=== PATIENT | female | born 1960 | race Caucasian/White ===

== ENCOUNTER 2018-05-26 08:13 | Outpatient (REF) | payer MEDICARE, SELFPAY ==
[2018-05-26 13:26] LABS: ALT 41 U/L (12-78); AST 25 U/L (15-37); Albumin 3.8 g/dL (3.4-5.0); Alkaline Phosphatase 108 U/L (46-116); Anion Gap 14.5 mmol/L (3-11); BUN 17 mg/dL (7-18); Bilirubin, Total 0.5 mg/dL (0.2-1.0); CO2 22.5 mmol/L (21.0-32.0); CREATININE 1.21 mg/dL (0.55-1.02); Calcium 9.6 mg/dL (8.5-10.1); Chloride 104 mmol/L (98-107); Cholesterol 295 mg/dL (50-200); Estimated GFR 45.86 (mL/min/1.73m2); Glucose 125 mg/dL (70-100); HDL Cholesterol 50 mg/dL (40-60); LDL CHOLESTEROL 209 mg/dL (<100); Potassium 3.9 mmol/L (3.5-5.1); Sodium 141 mmol/L (136-145); Total Protein 7.2 g/dL (6.4-8.2); Triglyceride 181 mg/dL (30-150)
== END 2018-05-26 08:33 ==
LOC: NCHCN 08:13
PROVIDERS: PCP Nurse Practitioner; Visit Provider Nurse Practitioner
DX: E78.5 Hyperlipidemia, unspecified (principal); I10 Essential (primary) hypertension; E66.9 Obesity, unspecified
CPT/HCPCS: 80053; 80061; 83721

== ENCOUNTER 2018-07-06 10:43 | Outpatient (REF) | payer MEDICARE, SELFPAY ==
[2018-07-06 13:02] LABS: HCT 46.1 % (36.0-46.0); HGB 15.7 g/dL (12.0-15.5); Mean Corp. HGB Concentration 34.1 g/dL (32.0-36.0); Mean Corpuscular Hemoglobin 30.4 pg (27.0-33.0); Mean Corpuscular Volume 89.2 fL (80-95); Mean Platelet Volume 11.2 fL (8.0-11.0); Platelet Count 300 x1000/uL (130-400); RBC 5.17 m/cumm (4.00-5.20); RBC Distribution Width 12.5 % (11.7-14.6); White Blood Cell Count 7.01 k/cumm (4.4-10.8)
[2018-07-06 13:35] LABS: TSH (W/Ref FT4) 0.78 uIU/mL (0.358-3.74)
[2018-07-08 06:37] LABS: Vitamin D 25 Total 21.5 ng/ml (30-100)
== END 2018-07-06 11:03 ==
LOC: NCHCN 10:43
PROVIDERS: PCP Nurse Practitioner; Visit Provider Nurse Practitioner
DX: R53.83 Other fatigue (principal); E66.8 Other obesity; R22.1 Localized swelling, mass and lump, neck
CPT/HCPCS: 82306; 85027; 84443

== ENCOUNTER 2018-07-13 01:41 | Outpatient (CLI) | payer MEDICARE, SELFPAY ==
--- NOTE | 2018-07-13 13:08 | DI.US_ITS ---
SYMPTOMS/DIAGNOSIS: LOCALIZED WELL-CIRCUMSCRIBED SWELLING, RIGHT SIDE OF NECK, MILD TENDERNESS, NO H/O THYROID DISEASE THYROID ULTRASOUND: Thyroid ultrasound was performed according to the usual protocol. Right thyroid lobe measures 48 x 32 x 14 mm and left thyroid lobe measures 45 x 16 x 12 mm. No previous examination available for comparison. There are numerous small thyroid nodules bilaterally of predominantly less than 6 mm in diameter. There is a 39 x 26 x 30 mm in diameter mixed echogenicity mass of the inferior pole of the right thyroid lobe. This appears to be avascular but contains a solid component. CONCLUSION: Multiple bilateral thyroid nodules with a dominant 4 cm right thyroid mass, which is indeterminate for malignancy. Please see above discussion. Biopsy recommended.
== END 2018-07-13 02:01 ==
PROVIDERS: PCP Nurse Practitioner; Visit Provider Nurse Practitioner
DX: R22.1 Localized swelling, mass and lump, neck (principal); E04.2 Nontoxic multinodular goiter; E07.89 Other specified disorders of thyroid
CPT/HCPCS: 76536

== ENCOUNTER 2018-08-18 10:58 | Outpatient (CLI) | payer MEDICARE, SELFPAY ==
--- NOTE | 2018-08-18 10:03 | DI.RAD_ITS ---
SYMPTOMS/DIAGNOSIS: EVALUATE LEFT KNEE PAIN LEFT KNEE: Four views were obtained. There is marked narrowing of the medial tibiofemoral cartilaginous joint space. There is mild narrowing of the lateral patellofemoral cartilaginous joint space. Prominent marginal osteophytes are noted at the medial tibiofemoral joint. Mild degenerative spurring note elsewhere as well. CONCLUSION: DJD, predominantly involving medial tibiofemoral joint.
== END 2018-08-18 11:18 ==
PROVIDERS: PCP Nurse Practitioner; Referring Provider Nurse Practitioner; Visit Provider Student in an Organized Health Care Education/Training Program
DX: M25.562 Pain in left knee; M17.12 Unilateral primary osteoarthritis, left knee; I10 Essential (primary) hypertension
CPT/HCPCS: 20610; 99203; 99213; 73564; J1040

== ENCOUNTER → 2018-10-18 09:08 | Outpatient (BNVA) | payer MEDICARE, SELFPAY | PROVIDERS: PCP Nurse Practitioner; Referring Provider Nurse Practitioner; Visit Provider Student in an Organized Health Care Education/Training Program | DX: M25.562 Pain in left knee; M17.12 Unilateral primary osteoarthritis, left knee; I10 Essential (primary) hypertension; Z98.890 Other specified postprocedural states | CPT/HCPCS: 99213 ==

== ENCOUNTER 2018-11-12 00:26 | Outpatient (CLI) | payer MEDICARE, SELFPAY ==
--- NOTE | 2018-11-12 15:50 | DI.MAMMO_ITS ---
EXAM: MAMMO SCREENING CLINICAL HISTORY: SCREENING Z12.39. TECHNIQUE: Mammograms were interpreted according to the usual protocol including computer analysis w [employer] CAD system, tomosynthesis and C-view imaging. COMPARISON: Current examination is compared with previous examinations including December 2014 FINDINGS: The breasts are of moderate density with fairly symmetrical distribution of fibroglandular tissue. No dominant mass or clumped microcalcification is identified in either breast. Current examination is c ompared with previous examinations including December 2014 and there has been no gross interval noonan e in appearance in comparison with the previous studies. IMPRESSION: No specific evidence of malignancy at this time. Routine screening examinations are suggested at year ly intervals due to the family history of breast carcinoma. Category 1, breast density category B.
== END 2018-11-12 00:46 ==
PROVIDERS: PCP Nurse Practitioner; Visit Provider Nurse Practitioner
DX: Z12.31 Encounter for screening mammogram for malignant neoplasm of breast (principal); Z80.3 Family history of malignant neoplasm of breast
CPT/HCPCS: 77063; 77067

== ENCOUNTER 2019-02-17 11:05 | Outpatient (CLI) | payer MEDICARE, SELFPAY | END 2019-02-17 11:25 | PROVIDERS: PCP Nurse Practitioner; Visit Provider Nurse Practitioner Adult Health | DX: E04.1 Nontoxic single thyroid nodule (principal) | CPT/HCPCS: 36415; 84443 ==

== ENCOUNTER 2019-04-18 14:25 | Outpatient (REF) | payer MEDICARE, SELFPAY ==
[2019-04-18 19:16] LABS: ALT 40 U/L (14-59); AST 17 U/L (15-37); Albumin 3.9 g/dL (3.4-5.0); Alkaline Phosphatase 121 U/L (46-116); Anion Gap 12.2 mmol/L (3-11); BUN 24 mg/dL (7-18); Bilirubin, Total 0.4 mg/dL (0.2-1.0); CO2 25.8 mmol/L (21.0-32.0); Calculated LDL 123 mg/dL (<100); Chloride 104 mmol/L (98-107); Cholesterol 211 mg/dL (<200); Estimated GFR 51.02 (mL/min/1.73m2); Glucose 94 mg/dL (74-106); HDL Cholesterol 62 mg/dL (40-60); Potassium 4.3 mmol/L (3.5-5.1); Sodium 142 mmol/L (136-145); TSH (W/Ref FT4) 4.71 uIU/mL (0.36-3.74); Total Protein 6.8 g/dL (6.4-8.2); Triglyceride 132 mg/dL (<150)
== END 2019-04-18 14:45 ==
LOC: NCHCN 14:25
PROVIDERS: PCP Nurse Practitioner; Visit Provider Nurse Practitioner
DX: E78.5 Hyperlipidemia, unspecified (principal); I10 Essential (primary) hypertension
CPT/HCPCS: 80053; 80061; 84439; 84443

== ENCOUNTER 2020-04-18 09:27 | Outpatient (REF) | payer MEDICARE, SELFPAY ==
--- OUTSIDE RECORDS SUMMARY | 2020-04-18 09:37 | XMS_ITS ---
:1960 Author Care Team Providers Name Role Phone [facility] Primary Care Provider [phone] FLORENCIO ROBINS Primary Care Provider [phone] [facility] OTHER [phone] Allergies Code Code System Name Reaction Severity Status Onset NKDA ? Medications Name Status Start Date Stop Date ? ? albuterol sulfate HFA 90 mcg/actuation Active ? Not available aerosol inhaler aspirin 81 mg tablet,delayed release Completed ? 08/19/2018 Take 1 tablet every day by oral route. atorvastatin 20 mg tablet Active ? Not av ailable bupropion HCl 100 mg tablet Active ? Not available clonidine HCl 0.1 mg tablet Active ? Not available 0.1mg tab BID qhs diphenhydramine 25 mg tablet Completed ? 12/2018 TAKE 1-2 TABLETS (50 MG) BY ORAL ROUTE at bedtime Fish Oil Completed ? 08/19/2018 daily gabapentin 100 mg capsule Active ? Not av ailable Take 1 capsule every day by oral route at bedtime. glucosamine sulfate Completed ? 08/19/2018 daily lamotrigine Active ? Not available 100mg BID lamotrigine 100 mg tablet Active ? Not av ailable levothyroxine Active ? Not available 25mg levothyroxine 50 mcg tablet Active ? Not available lisinopril 10 mg tablet Active ? Not avai lable magnesium Completed ? 08/19/2018 magnesium glycinate Active ? Not availabl e Magnesium Lactate 84 mg tablet,extended release Completed ? 08/19/2018 Take 2 tablets twice a day by oral route. melatonin 5 mg tablet Completed ? 08/19/2018 Take 2 tablets every day by oral route at bedtime. meloxicam 7.5 mg tablet Completed ? 08/20/19 19 Take 1 tablet twice a day by oral route as needed. montelukast 10 mg tablet Active ? Not marilia ilable mvi, adult no.1 with vit K Completed ? 08/19 daily Z-Jlebvs-A-Cysteine Completed ? 08/19/2018 600mg caps- 2caps daily omeprazole 20 mg capsule,delayed release Completed ? 08/19/2018 Take 1 capsule every day by oral route. ondansetron 4 mg disintegrating tablet Active ? Not available Take 1 mg as needed by oral route. ondansetron 8 mg disintegrating tablet Active ? Not available oxybutynin chloride 5 mg tablet Completed ? 08/19/2018 Take 1 tablet twice a day by oral route. ranitidine 150 mg tablet Completed ? 019 Take 1 tablet every day by oral route. riboflavin (vitamin B2) 100 mg tablet Completed ? 08/19/2018 Take 2 tablets twice a day by oral route. sertraline 100 mg tablet Completed ? 019 Take 2 tablets every day by oral route. sumatriptan 50 mg tablet Active ? Not marilia ilable trazodone 100 mg tablet Completed ? 08/20/19 19 Take 1 tablet every day by oral route at bedtime. Vitamin D3 25 mcg (1,000 unit) capsule Active ? Not available Take 2 capsules every day by oral route. zolpidem 5 mg tablet Completed ? 12/09/2018 take 1-2 PO night of sleep study PRN Zyrtec 10 mg tablet Completed ? 08/19/2018 Take 1 tablet every day by oral route. Problems Name Status Onset Date Source ? Hyperlipidemia Active 08/18/2018 ? Obesity Active 08/18/2018 ? Anxiety Active 08/18/2018 ? Obsessive-compulsive Disorder Active 08/18/2018 ? Migraine Active 08/18/2018 ? Bilateral Hearing Loss Active 08/18/2018 ? Hypertensive Disorder Active 08/18/2018 ? Asthma Active 08/18/2018 ? Gastroesophageal Reflux Disease Active 08/18/2018 ? Constipation Active 08/18/2018 ? Joint Pain Active 08/18/2018 ? Cramp in Lower Limb Active 08/18/2018 ? Fatigue Active 08/18/2018 ? Urinary Incontinence Active 08/18/2018 ? Abdominal Pain Active 08/18/2018 ? Hyperglycemia Active 08/18/2018 ? Contusion Active 08/18/2018 ? Blood Clots in Stool Active 08/18/2018 ? Renal Insufficiency Active 08/18/2018 ? Weight Gain Active 08/18/2018 ? Insomnia Active 08/19/2018 ? Periodic Leg Movements of Sleep Active 08/19/2018 ? Snoring Active 08/19/2018 ? Obstructive Sleep Apnea Syndrome Active ? ? Procedures Date Name Performed by ? 08/19/2018 Polysomnogram Information not avai lable Results Lab Results None recorded. Past Encounters 10/27/2019 Obstructive Sleep Apnea Syndrome Rosa Alonso [employer]ILER: [address] [phone], Ph. 12/09/2018 Obstructive Sleep Apnea Syndrome Rosa Alonso [employer]ILER: [address] [address], Ph. Social History Tobacco Smoking Status Former Smoker Notes: Stopped smoking 1992 Vaccine List None recorded. Plan of Care Reminders Provider Appointments None ? ? recorded. Lab None ? ? recorded. Referral None ? ? recorded. Procedures None ? ? recorded. Surgeries None ? ? recorded. Imaging None ? ? recorded. Vitals 10/27/2019 11:30AM Office 30 Height Weight BMI Blood Pressure 161.93 cm 102.06 kg 38.9 kg/m2 124/76 mm[Hg] 12/09/2018 10:15AM Office 30 Height Weight BMI Blood Pressure 161.93 cm 93.44 kg 35.6 kg/m2 122/72 mm[Hg] 09/28/2018 09:45AM Office 30 Height Weight BMI Blood Pressure 161.93 cm 92.17 kg 35.2 kg/m2 140/80 mm[Hg] 08/19/2018 01:30PM New Patient 45 Height Weight BMI Blood Pressure 161.93 cm 93.98 kg 35.8 kg/m2 126/78 mm[Hg]
[2020-04-18 16:51] LABS: ALT 39 U/L (14-59); AST 20 U/L (15-37); Albumin 3.8 g/dL (3.4-5.0); Alkaline Phosphatase 108 U/L (46-116); Anion Gap 10.9 mmol/L (3-11); BUN 17 mg/dL (7-18); Bilirubin, Total 0.4 mg/dL (0.2-1.0); CO2 26.1 mmol/L (21.0-32.0); CREATININE 1.2 mg/dL (0.55-1.02); Calculated LDL 90 mg/dL (<100); Chloride 105 mmol/L (98-107); Cholesterol 166 mg/dL (<200); Estimated GFR 45.98 (mL/min/1.73m2); Glucose 128 mg/dL (74-106); HDL Cholesterol 54 mg/dL (40-60); Potassium 3.6 mmol/L (3.5-5.1); Sodium 142 mmol/L (136-145); TSH (W/Ref FT4) 2.32 uIU/mL (0.36-3.74); Total Protein 6.6 g/dL (6.4-8.2); Triglyceride 112 mg/dL (<150)
[2020-04-19 04:49] LABS: Vitamin D 25 Total 26.2 ng/ml (30-100)
== END 2020-04-18 09:28 | disposition home or self-care (01) ==
LOC: NCHCN 09:27
PROVIDERS: PCP Nurse Practitioner; Visit Provider Nurse Practitioner
DX: E78.5 Hyperlipidemia, unspecified (principal); E55.9 Vitamin D deficiency, unspecified
CPT/HCPCS: 80053; 80061; 82306; 84443

== ENCOUNTER 2020-11-08 02:38 | Outpatient (CLI) | payer MEDICARE, SELFPAY ==
--- NOTE | 2020-11-08 08:19 | DI.MAMMO_ITS ---
Exam(s) MAMMO SCREENING EXAM: MAMMO SCREENING CLINICAL HISTORY: SCREENING,Z12.39 TECHNIQUE: Bilateral full field digital CC and MLO mammographic images were obtained with 3D tomosyn thesis and utilizing computer aided detection (CAD). COMPARISON: Available for comparison. FINDINGS: Masses/Architectural Distortion: There is a rounded area of asymmetric breast tissue in the outer lef t breast on the craniocaudad view. This area appears more prominent compared to the prior examinatio n. Microcalcifications: No suspicious pleomorphic-type are seen. Skin Thickening/Nipple Retraction: None. IMPRESSION: 1. Asymmetric nodular breast tissue in the outer left breast. 2. This area should be further evaluated with spot compression view. Ultrasound may be indicated at that time. BI-RADS Category 0 - Assessment Incomplete: Need additional imaging evaluation Breast Density - Category B - Scattered areas of fibroglandular density Breast density category C or D implies that the patient has dense breast tissue. Dense breast tissue is very common and is not abnormal but dense breast tissue can make it harder to find cancer on a ma mmogram. Also, dense breast tissue may increase their breast cancer risk. This information about the result of the mammogram report was provided to the patient to raise their awareness. Use this report when you speak with the patient about their risks for breast cancer, which includes their family hist ory. At that time, you may recommend for more screening tests (Ultrasound or MRI) as they might be us eful based on their risk. A negative radiographic report should not delay biopsy if a dominant or clinically suspicious mass is present. Up to ten percent of cancers are not identified on mammography. A negative report may reinforce clinical impression. Adenosis and dense breasts may obscure an underlying neoplasm. False positive reports average 6 to 10%. Patient will receive a letter notifying them of these results.
== END 2020-11-08 02:58 ==
PROVIDERS: PCP Nurse Practitioner; Visit Provider Nurse Practitioner
DX: Z12.31 Encounter for screening mammogram for malignant neoplasm of breast (principal); R92.8 Other abnormal and inconclusive findings on diagnostic imaging of breast
CPT/HCPCS: 77063; 77067

== ENCOUNTER 2020-11-13 12:23 | Outpatient (REF) | payer MEDICARE, SELFPAY ==
--- NOTE | 2020-11-13 11:30 | PAPFT_PTH ---
PATIENT: Catie Alvares LOC: [facility]#:[id number] AGE/SX: 60/F ROOM: RE11/13/[address]: Nathalie Pratt : 1960 BED: DIS: 11/13/2020 SPEC #: [id number] RECD: 11/13/20 19:00 STATUS: KALYN REJohn #: [id number] BECK: 11/13/20 11:[address]: Nathalie Pratt DEPT: [facility] Cytology RECD BY: Aleta Bazan Tissues: 1 - CX/ENDOCX FOR PAP SMEARS Procedures: PAP THIN PREP/[facility] Screening Comments: [id number]
== END 2020-11-13 12:24 | disposition home or self-care (01) ==
LOC: NCHCN 12:23
PROVIDERS: PCP Nurse Practitioner; Visit Provider Nurse Practitioner
DX: Z12.4 Encounter for screening for malignant neoplasm of cervix (principal)
CPT/HCPCS: 88142

== ENCOUNTER → 2020-11-23 00:20 | Outpatient (CLI) | payer MEDICARE, SELFPAY ==
--- NOTE | 2020-11-23 | DI.MAMMO_ITS ---
Exam(s) MG MAMMO SCREEN CALL BACK UNI US BREAST LT LIMITED EXAM: MG MAMMO SCREEN CALL BACK UNI CLINICAL HISTORY: F/U MAMMO, OUTER LT BREAST ASYMMETRIC NODULAR TISSUE. TECHNIQUE: Craniocaudal and mediolateral oblique spot compression digital Mammography views followed by Tomosynthesis and left breast ultrasound. COMPARISON: 2012 through 08 November 2020 FINDINGS: Mammography/Tomosynthesis: Masses/Architectural Distortion: Persistent ovoid nodularity in the upper outer quadrant. Microcalcifictions: No suspicious pleomorphic-type are seen. Skin Thickening/Nipple Retraction: None. Left breast US: Echotexture: Normal appearance of the glandular tissue. Shadowing: No suspicious foci. Cyst: 4 millimeters cyst 1 o'clock 2 cm from the nipple. 8 x 4 x 4 millimeter cyst 2 o'clock 6 cm fr om the nipple, corresponding to the mammographic abnormality. 3 x 6 x 2 millimeters cyst 3 cm from t he nipple 3 o'clock position. Solid lesions: None seen. Ductal dilation: None. Axilla: Normal lymph nodes. IMPRESSION: 1. No evidence of malignancy is noted. Cysts in the upper outer quadrant. 2. Unless there is more urgent need, follow-up screening mammography is recommended, as per [employer] guidelines. 3. The findings were discussed with the patient on the date of the examination. BI-RADS Category 2 - Benign Findings Breast Density - Category B - Scattered areas of fibroglandular density . A negative radiographic report should not delay biopsy if a dominant or clinically suspicious mass is present. Up to ten percent of cancers are not identified on mammography. A negative report may reinforce clinical impression. Adenosis and dense breasts may obscure an underlying neoplasm. False positive reports average 6 to 10%. Patient will receive a letter notifying them of these results.
== END ==
PROVIDERS: PCP Nurse Practitioner; Visit Provider Nurse Practitioner
DX: Z12.31 Encounter for screening mammogram for malignant neoplasm of breast (principal); R92.8 Other abnormal and inconclusive findings on diagnostic imaging of breast; N60.12 Diffuse cystic mastopathy of left breast
CPT/HCPCS: 76642; 77063; 77067

== ENCOUNTER 2021-05-21 09:35 | Outpatient (REF) | payer MEDICARE, SELFPAY ==
[2021-05-21 15:58] LABS: HGB 13.6 g/dL (11.2-15.7); MCH 30.8 pg (27.0-33.0); MCHC 33.2 % (32.0-36.0); MCV 92.8 fL (80-95); MPV 10.4 fL (8.0-11.0); Platelet Count 301 10^3/uL (130-400); RBC 4.42 10^6/uL (3.93-5.22); RDW 11.7 % (11.7-14.6); RDW-SD 40.1 fL; WBC 7.56 10^3/uL (4.4-10.8)
[2021-05-21 16:33] LABS: ALT 36 U/L (14-59); AST 15 U/L (15-37); Albumin 3.8 g/dL (3.4-5.0); Alkaline Phosphatase 112 U/L (46-116); Anion Gap 10.4 mmol/L (3-11); BUN 14 mg/dL (7-18); Bilirubin, Total 0.4 mg/dL (0.2-1.0); CO2 24.6 mmol/L (21.0-32.0); CREATININE 1.2 mg/dL (0.55-1.02); Chloride 108 mmol/L (98-107); Estimated GFR 45.83 (mL/min/1.73m2); Glucose 100 mg/dL (74-106); Potassium 4.2 mmol/L (3.5-5.1); Sodium 143 mmol/L (136-145); TSH 2.47 uIU/mL (0.36-3.74); Total Protein 6.6 g/dL (6.4-8.2)
== END 2021-05-21 09:36 | disposition home or self-care (01) ==
LOC: NCHCN 09:35
PROVIDERS: PCP Nurse Practitioner; Visit Provider Nurse Practitioner Family
DX: I10 Essential (primary) hypertension (principal); E03.9 Hypothyroidism, unspecified; E78.5 Hyperlipidemia, unspecified; F39 Unspecified mood [affective] disorder; G43.909 Migraine, unspecified, not intractable, without status migrainosus; J45.20 Mild intermittent asthma, uncomplicated
CPT/HCPCS: 80053; 85027; 84443

== ENCOUNTER 2021-06-20 10:13 | Outpatient (REF) | payer MEDICARE, SELFPAY ==
[2021-06-20 15:22] LABS: COMMENT (LAB VIEW ONLY) 104.07 mg/dL; Microalb ug/mg Crea 5.8 ug/mg Cr
== END 2021-06-20 10:14 | disposition home or self-care (01) ==
LOC: NCHCN 10:13
PROVIDERS: PCP Nurse Practitioner; Visit Provider Nurse Practitioner Family
DX: I10 Essential (primary) hypertension (principal)
CPT/HCPCS: 82043; 82570

== ENCOUNTER → 2021-11-11 02:37 | Outpatient (CLI) | payer MEDICARE, SELFPAY ==
--- NOTE | 2021-11-11 | DI.MAMMO_ITS ---
Exam(s) MAMMO SCREENING EXAM: MAMMO SCREENING CLINICAL HISTORY: SCREENING FOR BREAST CANCER Z12.39 TECHNIQUE: Mammograms were interpreted according to the usual protocol including computer analysis w [employer] CAD system, tomosynthesis and C-view imaging. COMPARISON: 2012 through 2020 FINDINGS: The breasts are composed of scattered fibroglandular densities, Breast Density category B. No suspicious masses or suspicious microcalcifications are seen. There are stable areas of nodularit y in the upper outer quadrants of both breasts. No skin thickening or abnormal axillary lymph nodes are seen. There has been no significant change from prior exams. IMPRESSION: BI-RADS Cat 2 - Benign Findings Yearly screening mammography is recommended. Breast Density - Category B, scattered fibroglandular densities. A negative radiographic report should not delay biopsy if a dominant or clinically suspicious mass is present. Up to ten percent of cancers are not identified on mammography. A negative report may reinforce clinical impression. Adenosis and dense breasts may obscure an underlying neoplasm. False positive reports average 6 to 10%. Patient will receive a letter notifying them of these results.
== END ==
PROVIDERS: PCP Nurse Practitioner; Visit Provider Nurse Practitioner Family
DX: Z12.31 Encounter for screening mammogram for malignant neoplasm of breast (principal)
CPT/HCPCS: 77063; 77067

== ENCOUNTER 2022-05-05 10:32 | Outpatient (CLI) | payer MEDICARE, SELFPAY ==
--- NOTE | 2022-05-05 10:15 | DI.RAD_ITS ---
Exam(s) XR WRIST LT COMPLETE EXAM: XR WRIST LT COMPLETE CLINICAL HISTORY: L wrist pain. TECHNIQUE: 2D digital imaging was performed of the left wrist. Three images were obtained. PA, obl ique and lateral views were obtained. COMPARISON: No exams were available for comparison FINDINGS: BONES: No acute fracture is present. No bony destructive lesion is seen. JOINTS: The carpal bones are normally aligned. Moderate degenerative changes are seen at the 1st CMC joint characterized by joint space narrowing and bony hypertrophy. The joint spaces are otherwise we ll maintained. SOFT TISSUE: Normal. 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 DATA REPOSITORY: RADIATION DOSE DELIVERED:
== END 2022-05-05 10:33 | disposition home or self-care (01) ==
LOC: DIORS 10:32
PROVIDERS: PCP Nurse Practitioner Family; Referring Provider Nurse Practitioner Family; Visit Provider Physician Assistant
DX: M18.12 Unilateral primary osteoarthritis of first carpometacarpal joint, left hand
CPT/HCPCS: 20550; 20600; 99203; 73110; J1030

== ENCOUNTER 2022-05-15 12:39 | Outpatient (REF) | payer MEDICARE, SELFPAY ==
[2022-05-16 13:18] LABS: Abs Immature Grans 0.06 10^3/uL (0.0-0.06); Absolute Basophil Count 0.07 10^3/uL (0.0-0.2); Absolute Eosinophil Count 0.23 10^3/uL (0.0-0.7); Absolute Monocyte Count 0.57 10^3/uL (0.1-0.8); Absolute Neutrophil Count 7.18 10^3/uL (1.2-6.7); Basophils % 0.7; Eosinophils % 2.2; HCT 43.1 % (36.0-46.0); HGB 14.1 g/dL (11.2-15.7); Immature Grans % 0.6; Lymphocytes % 21.3; MCH 30.7 pg (27.0-33.0); MCHC 32.7 % (32.0-36.0); MCV 94 fL (80-95); MPV 9.9 fL (8.0-11.0); Monocytes % 5.5; Neutrophils % 69.7; Platelet Count 327 10^3/uL (130-400); RDW 11.9 % (11.7-14.6); RDW-SD 41.2 fL; WBC 10.31 10^3/uL (4.4-10.8)
[2022-05-16 13:44] LABS: Hemoglobin A1C 5.7 % (<5.7)
[2022-05-16 13:51] LABS: Vitamin D 25 Total 31.8 ng/mL (30-100)
[2022-05-16 13:54] LABS: ALT 41 U/L (14-59); AST 22 U/L (15-37); Albumin 4.1 g/dL (3.4-5.0); Alkaline Phosphatase 111 U/L (46-116); Anion Gap 9.7 mmol/L (3-11); BUN 29 mg/dL (7-18); Bilirubin, Total 0.4 mg/dL (0.2-1.0); CO2 27.3 mmol/L (21.0-32.0); CREATININE 1.4 mg/dL (0.55-1.02); Calcium 9.3 mg/dL (8.5-10.1); Chloride 105 mmol/L (98-107); Glucose 128 mg/dL (74-106); Potassium 3.9 mmol/L (3.5-5.1); Sodium 142 mmol/L (136-145); TSH (W/Ref FT4) 2.37 uIU/mL (0.36-3.74); Total Protein 7.7 g/dL (6.4-8.2); Vitamin B12 598 pg/mL (193-986)
== END 2022-05-15 12:40 | disposition home or self-care (01) ==
LOC: NCHCN 12:39
PROVIDERS: PCP Nurse Practitioner Family; Visit Provider Registered Nurse
DX: F41.8 Other specified anxiety disorders; F31.81 Bipolar II disorder; E55.9 Vitamin D deficiency, unspecified; R73.09 Other abnormal glucose; Z86.39 Personal history of other endocrine, nutritional and metabolic disease
CPT/HCPCS: 80053; 82306; 82607; 83036; 83970; 84443; 85025

== ENCOUNTER 2022-06-10 16:10 | Outpatient (REF) | payer MEDICARE, SELFPAY ==
[2022-06-10 17:12] LABS: COMMENT (LAB VIEW ONLY) 51.86 mg/dL; Microalb ug/mg Crea 6.2 ug/mg Cr
== END 2022-06-10 16:11 | disposition home or self-care (01) ==
LOC: NCHCN 16:10
PROVIDERS: PCP Nurse Practitioner Family; Visit Provider Nurse Practitioner Family
DX: N39.3 Stress incontinence (female) (male) (principal)
CPT/HCPCS: 82043; 82570

== ENCOUNTER 2022-12-08 13:56 | Outpatient (CLI) | payer MEDICARE, SELFPAY ==
[2022-12-08 11:32] LABS: Abs Immature Grans 0.03 10^3/uL (0.0-0.06); Absolute Basophil Count 0.07 10^3/uL (0.0-0.2); Absolute Eosinophil Count 0.26 10^3/uL (0.0-0.7); Absolute Lymphocyte Count 1.86 10^3/uL (1.2-3.4); Absolute Monocyte Count 0.61 10^3/uL (0.1-0.8); Absolute Neutrophil Count 5.06 10^3/uL (1.2-6.7); Basophils % 0.9; Eosinophils % 3.3; HCT 42.9 % (36.0-46.0); HGB 14.2 g/dL (11.2-15.7); Immature Grans % 0.4; Lymphocytes % 23.6; MCH 30.5 pg (27.0-33.0); MCHC 33.1 % (32.0-36.0); MCV 92 fL (80-95); MPV 9.9 fL (8.0-11.0); Monocytes % 7.7; Neutrophils % 64.1; Platelet Count 258 10^3/uL (130-400); RBC 4.65 10^6/uL (3.93-5.22); RDW 11.8 % (11.7-14.6); RDW-SD 39.3 fL; WBC 7.89 10^3/uL (4.4-10.8)
[2022-12-08 12:03] LABS: Iron 71 ug/dL (50-170); Total Iron Binding Capacity 243 ug/dL (250-450); Transferrin Sat 29 % (15-50)
[2022-12-08 12:13] LABS: Hemoglobin A1C 5.5 % (<5.7)
[2022-12-08 12:14] LABS: ALT 32 U/L (14-59); AST 18 U/L (15-37); Alkaline Phosphatase 116 U/L (46-116); Anion Gap 12.7 mmol/L (3-11); BUN 21 mg/dL (7-18); Bilirubin, Total 0.4 mg/dL (0.2-1.0); CO2 23.3 mmol/L (21.0-32.0); CREATININE 1.3 mg/dL (0.55-1.02); Calcium 10.2 mg/dL (8.5-10.1); Chloride 105 mmol/L (98-107); Estimated GFR 46.49 (mL/min/1.73m2); Glucose 104 mg/dL (74-106); Potassium 4.3 mmol/L (3.5-5.1); Sodium 141 mmol/L (136-145); TSH (W/Ref FT4) 2.11 uIU/mL (0.36-3.74)
== END 2022-12-08 13:57 | disposition home or self-care (01) ==
PROVIDERS: PCP Nurse Practitioner Family; Visit Provider Nurse Practitioner Family
DX: N18.31 Chronic kidney disease, stage 3a (principal); R73.9 Hyperglycemia, unspecified; R40.0 Somnolence; F31.81 Bipolar II disorder; I10 Essential (primary) hypertension; R73.03 Prediabetes; G47.33 Obstructive sleep apnea (adult) (pediatric)
CPT/HCPCS: 36415; 80053; 83036; 83540; 83550; 84443; 85025

== ENCOUNTER 2023-06-01 14:47 | Outpatient (REF) | payer MEDICARE, SELFPAY ==
[2023-06-01 15:28] LABS: HCT 40.8 % (36.0-46.0); HGB 13.2 g/dL (11.2-15.7); MCH 30.7 pg (27.0-33.0); MCHC 32.4 % (32.0-36.0); MCV 95 fL (80-95); MPV 10.1 fL (8.0-11.0); Platelet Count 323 10^3/uL (130-400); RDW 12.5 % (11.7-14.6); RDW-SD 42.9 fL; WBC 7.56 10^3/uL (4.4-10.8)
[2023-06-01 15:49] LABS: ALT 29 U/L (14-59); AST 22 U/L (15-37); Albumin 3.5 g/dL (3.4-5.0); Alkaline Phosphatase 110 U/L (46-116); Anion Gap 12.5 mmol/L (3-11); BUN 24 mg/dL (7-18); Bilirubin, Total 0.4 mg/dL (0.2-1.0); CO2 24.5 mmol/L (21.0-32.0); CREATININE 1.7 mg/dL (0.55-1.02); Calcium 9.1 mg/dL (8.5-10.1); Chloride 107 mmol/L (98-107); Glucose 136 mg/dL (74-106); Sodium 144 mmol/L (136-145); TSH (W/Ref FT4) 1.78 uIU/mL (0.36-3.74); Total Protein 7.1 g/dL (6.4-8.2)
[2023-06-01 16:12] LABS: Hemoglobin A1C 5.8 % (<5.7)
== END 2023-06-01 14:48 | disposition home or self-care (01) ==
LOC: NCHCN 14:47
PROVIDERS: PCP Nurse Practitioner Family; Visit Provider Nurse Practitioner Family
DX: R73.03 Prediabetes (principal); E03.9 Hypothyroidism, unspecified; N18.31 Chronic kidney disease, stage 3a
CPT/HCPCS: 80053; 85027; 83036; 84443

== ENCOUNTER 2023-08-31 13:42 | Outpatient (REF) | payer MEDICARE, SELFPAY ==
--- OUTSIDE RECORDS SUMMARY | 2023-08-31 13:52 | XMS_ITS | Encounter Summary ---
Author Organization [facility] Address [address] [place] [address] Care Team Providers Care Butcher Helper Name Role Phone Rosalee Bryant [employer] Primary Care Provider Encounter Details Date Type Department Care Team (Latest Contact Info) Description 01/02/2014 11:16 EST - 01/02/2014 23:59 EST Hospital Encounter [address] [address] Unknown, Provider, Discharge Disposition: Home or Self Care Social History Tobacco Use Types Packs/Day Years Used Date Smoking Tobacco: Never Assessed Sex and Gender Information Value Date Recorded Sex Assigned at Not on file Gender Identity Not on file Sexual Orientation Not on file documented as of this encounter Discharge Disposition Disposition Code Departure Means Destination Home or Self Correction documented in this encounter Plan of Treatment Not on file documented as of this encounter Visit Diagnoses Not on filedocumented in this encounter Care Teams Butcher Helper Relationship Specialty Start Date End Date Rosalee Bryant NP [address] [place] [phone] PCP - General 11/27/10 01/05/14 documented as of this encounter
--- OUTSIDE RECORDS SUMMARY | 2023-08-31 13:52 | XMS_ITS | Encounter Summary ---
Author Organization [facility] [place] [address] Care Team Providers Care Commercial Accountant Name Role Phone Nathalie Pratt APRN Primary Care Provider Encounter Details Date Type Department Care Team (Latest Contact Info) Description 10/12/2018 8:37 AM EDT - 10/12/2018 3:21 PM EDT Hospital Encounter [place] [address] Krystina Becker MD [facility] [place] [address] Thyroid nodule Discharge Disposition: Home Social History Tobacco Use Types Packs/Day Years Used Date Smoking Tobacco: Former Cigarettes Q uit: 1991 Smokeless Tobacco: Never Comments:lives with a smoker Sex and Gender Information Value Date Recorded Sex Assigned at Not on file Gender Identity Not on file Sexual Orientation Not on file documented as of this encounter Last Filed Vital Signs Vital Sign Reading Time Taken Comments Blood Pressure 153/76 10/12/2018 1:30 PM EDT Pulse 82 10/12/2018 9:15 AM EDT Temperature 36.1 ??C (97 ??F) 10/12/2018 12:12 PM EDT Respiratory Rate 18 10/12/2018 12:45 PM EDT Oxygen Saturation 92% 10/12/2018 1:40 PM EDT Inhaled Oxygen Concentration - - Weight 93 kg (205 lb) 10/12/2018 9:15 AM EDT Height 160 cm (5' 3) 10/12/2018 9:15 AM EDT Body Mass Index 36.31 10/12/2018 9:15 AM EDT documented in this encounter Discharge Instructions * Discharge Instructions* Rubia Cole RN - 10/12/2018 12:24 PM EDT POST ANESTHESIA INSTRUCTIONS Go home, rest, use caution on stairs. Change positions slowly. Do not smoke if you are alone. Diet light to regular as tolerated today. If nausea occurs start with clear liquids and progress slowly. No driving, operating machinery, alcoholic beverages and no important decisions for 24 hours. Monitor IV site for signs and symptoms of infection: increasing redness, swelling, foul drainage, if occurs contact M.D. Patients who have had endotrachial tubes (this tube, used by anesthesia department, is passed down your throat after you are asleep, to ensure safe air passage during your operation). A sore throat is normal due to the tube. Cold liquids or soothing lozenges will help ease the discomfort. The generalized muscle aches are due to the medication given to you just before the tube is inserted. As the medication wears off, you may develop muscle soreness, which usually goes away in 12-24 hours. * Patient Instructions* Cleopatra Deluca MD - 10/12/2018 9:40 AM EDT THYROID LOBECTOMY (HEMITHYROIDECTOMY) PATIENT DISCHARGE INSTRUCTIONS What to Expect Following Surgery: Swelling and/or bruising under and around the incision is normal. It is usually greatest on the second or third day following surgery. You may also feel the sensation of swelling or firmness that canlast for a month or more Your scar will be most visible for 1-2 months following your operation and will gradually fade overthe next 6-8 months. As it heals, a scar often looks more pink or red than the skin around it. You may feel a ???healing ridge?? directly under the incision. This is completely normal and is the result of swelling, healing, and scar formation. Usually, this will go away when healing is complete in 3-6 months. The skin just above and below your incision will feel numb. This will improve over several months but some patients may have a long-term decrease in sensation over these areas. You may notice minor difficulty in swallowing which will improve over time. Your voice may be hoarse or weak at first--this is normal and does not mean there was damage done to the nerves that make the vocal cords move. Your voice will usually go back to normal after severaldays to a few weeks. Incision Care: Neck incisions heal rapidly--usually within a week or two. The incision can get wet in the shower 24 hours after surgery. However, do not submerge the incision underwater (i.e. bath tub, swimming pool, hot tub, etc.) for at least 2 weeks after your operation. Pat the incision dry immediately following your shower. Do not scrub the area vigorously for the next 2 weeks. You have a skin glue closure, and you may notice tiny pieces of yellow/white/fuchs material on your washcloth or there may be a thin clear or purplish/fuchs crust around the edges of the incision. Thisis normal. The glue will start to come off about a week after surgery. Do not pull off the skin glue in order to allow time for the incision to heal completely. If there is still some glue on your skin 2 weeks after surgery, you may gently wash it away. Do not use any ointments/salves/Vitamin E on the incision for 2 weeks as these may impair early wound healing. After 2 weeks (and after the skin glue is gone), you may apply vitamin E oil or scar creams to the incision. Gentle massage may help soften your scar tissue. Incisions are sensitive to sunlight. For at least 1 year after surgery you should use sunscreen when outdoors for long periods of time to prevent permanent darkening of the scar. This includes tanning booths. Pain Management: You may apply ice or cold packs to the incision for 15-20 minutes several times a day for the first2-3 days following surgery to help with discomfort. You may feel some stiffness/soreness in your shoulders, back, and neck. This may take a few days orweeks to go away completely. You may use moist warm heat, a heating pad, or massage to these areas for 15-20 minutes several times a day. Do not be afraid to move your neck - gently flexing and stretching your neck muscles and light massage will help prevent stiffness NSAIDs (non-steroidal anti-inflammatory drugs) such as ibuprofen (Motrin, Advil) and naproxen (Naprosyn, Aleve) or acetaminophen (Tylenol) are most helpful for the pain experienced after surgery. Generally, these are even more effective than the stronger pain medications (narcotics or opioids) after thyroid surgery. Take NSAIDS or Tylenol every 6 hours [id number] for the first 3-5 days following surgery to help minimize pain. It is unusual to require opioid pain medications after thyroid surgery. If you were prescribed oxycodone, use only for severe pain, and never take with alcohol. Opioid medications typically cause constipation, so we suggest using a stool softener in addition (metamucil, colace...etc.). Diet & Activity: No restrictions in your diet are necessary. Activity as tolerated by your comfort level. You may return to work as soon as you would like. However, if your job requires heavy lifting or strenuous physical activity, your surgeon may ask you to wait to return to work for two weeks. NO DRIVING for 24 hours after general anesthesia and for at least 8 hours following any dose of an opioid pain medication if one was prescribed for you. Thyroid Hormone: About 25% of patients will require thyroid hormone supplementation after a hemithyroidectomy. A blood test will performed in approximately 6 weeks to determine whether you need this. This lab test will be coordinated with your follow-up appointment. Pathology Report: All specimens removed at surgery are analyzed by a pathologist. This report usually takes approximately 5-7 business days to be ready. Dr. Becker will call you with this report as soon as it is available. Follow-up Appointment: Will be scheduled with Dr. Becker in approximately 6 weeks. Please call [phone] to confirm the date and time of your appointment if you do not hear from us in the next 2 weeks or if you need to reschedule. Call Doctor for: Call if you have trouble talking or breathing (call [phone] if this is severe) Call if you develop numbness or tingling around your mouth/lips or on the tips of your fingers or your hands, as this may mean your calcium is low. This may also be related to pain medication, where the breathing tube was positioned against your lips, the positioning of your arms and hands in the operating room, or how you were positioned when sleeping. If the sensation does not go away within a half hour, or if it worsens prior to that, call us immediately so we can discuss increasing your calcium if we think you need it. Call if your incision becomes red or begins to drain fluid. Call if you have fevers greater than 101 degrees F Call if you have persistent nausea or vomiting (this may be related to opioid pain medications). Call if you begin feeling worse, rather than better, several days after surgery. Phone number for questions: [phone] before 5 PM on weekdays [phone] after 5 PM and on weekends/holidays. Ask for the general surgery resident christian education director. documented in this encounter Medications at Time of Discharge Medication Sig Dispensed Refills Start Date End Date lamoTRIgine (LAMICTAL) 25 mg Tablet 100 mg 2 times daily. 0 08/24/2018 zolpidem (AMBIEN) 5 mg Tablet take 1 to 2 tablets by mouth THE NIGHT OF THE SLEEP STUDY NEEDED 0 08/19/2018 PROAIR HFA 90 mcg/actuation HFA Aerosol Inhaler inhale 2 puffs by mouth BEFORE EXERCISE if needed 0 04/28/2018 atorvastatin (LIPITOR) 20 mg Tablet take 1 tablet by mouth at bedtime 0 06/01/2018 buPROPion (WELLBUTRIN) 100 mg Tablet take 1 tablet by mouth twice a day 0 07/06/2018 montelukast (SINGULAIR) 10 mg Tablet take 1 tablet by mouth once daily if needed for asthma 0 06/01/2018 lisinopril (PRINIVIL;ZESTRIL) 10 mg Tablet take 1 tablet by mouth once daily 0 07/06/2018 MAGNESIUM GLYCINATE ORAL Take by mouth. inhalational spacing device Spacer by [facility].(Non-Drug; Combo Route) route. cholecalciferol, Vitamin D3, (VITAMIN D) 1,000 unit Capsule Take by mouth. documented as of this encounter H&P Notes * Cleopatra Deluca MD - 10/12/2018 9:38 AM EDT Surgery Interval H&P ID: Catie Alvares is a 58 y.o. female with a history of thyroid nodule who is here for RIGHT thyroid lobectomy. No changes in health since her last clinic visit with Dr. Becker on 08/26/18. Physical Exam Patient Vitals for the past 24 hrs: BP Temp Pulse Resp SpO2 Height Weight 10/12/18 0915 140/78 36.1 ??C (97 ??F) 82 16 100 % 160 cm (5' 3) 93 kg (205 lb) Gen: NAD, A&O Cardiac: Regular rate Pulm: Unlabored on RA Abd: Soft, NTND Ext:Well perfused extremities Site marking: Right neck A/P: Catie Alvares is a 58 y.o. female who presents for the reasons listed above. Procedure and risks have been explained to the patient including bleeding, infection, damage to surrounding structures, recurrent laryngeal nerve injury, hypocalcemia and need for additional procedures. All questions were answered. Informed consent has been obtained in clinic on 08/26/18. Pt is ready for the OR. Cleopatra Deluca MD 10/12/2018 9:38 AM documented in this encounter Miscellaneous Notes * Op Note - Krystina Becker MD - 10/12/2018 11:49 AM EDT [facility] Operative Note Patient Name: Catie Alvares : [id number] MR#: [id number] Case Date: 10/12/2018 Surgeon: Surgeon(s) and Role: * Krystina Becker MD - Primary * Cleopatra Deluca MD - Resident Preoperative diagnosis: THYROID NODULE Postoperative diagnosis: THYROID NODULE Procedure(s) (LRB): THYROIDECTOMY, LOBECTOMY, TOTAL, UNILATERAL (WRVU 11.19) (N/A) FACIAL NERVE MONITORING, SETUP LARYNGEAL (WRVU 1.57) (N/A) Anesthesia: Anesthesia type not filed in the log. Estimated Blood Loss: 3 mL Specimens removed during surgery: Order Name Source Comment Collection Info Order Time SPECIMEN TO PATHOLOGY OR22 THYROID NODULE right lobe of thyroid - stitch in upper pole excision 10/12/2018 11:38 AM Time specimen removed from patient: 11:38 AM Number of tissue samples (in container) 1 Drains: * No LDAs found * Surgical Closure: Primary Closure - skin incision is completely closed without any wires, lance, drains or other devices Disposition: awakened from anesthesia, extubated and taken to the recovery room in a stable condition, having suffered no apparent untoward event. Condition: doing well without problems (Please see the Surgical Encounter Summary for any Implant and Specimen details pertinent to this patient.) HPI/Surgical Indications: Ms. Catie Alvares is a 58 y.o. year old female with a right-sided thyroid nodule and FNA demonstrating nondiagnostic ([place] 1) cytology. The nodule is significantly smaller than it was about a month ago at the time of the FNA with endocrinology (2cm from 4cm). I offered her right hemithyroidectomy vs. a period of observation with repeat ultrasound and FNA to obtain a definitive diagnosis on the solid component. Given that she is still mildly symptomatic and that she would like to avoid ever having symptoms like the ones she had before, she prefers to proceed to surgery. We discussed the fact that should the final pathology report contain thyroid cancer, she may require a completion thyroidectomy. We also discussed the fact that about 25% of patients will require some thyroid hormone supplementation after hemithyroidectomy, and we will determine whether sheneeds this by checking a TSH 6 weeks post-operatively. Procedure Description: The patient was correctly identified in the preoperative holding area. The risks, benefits, and indications of a thyroidectomy were reviewed with the patient. She was then taken to the operating room and placed on the operating table in the supine position and an identification procedure was performed. Adequate general anesthesia was achieved by anesthesiology with the Medtronic recurrent laryngeal nerve monitoring system. A natural crease in the anterior neck was marked with a marking pen. This area was infiltrated with 0.25% Sensorcaine with epinephrine. The patient'santerior neck was then prepped and draped in sterile fashion. A timeout procedure was done and all members of the OR team were in agreement. We made a curvilinear incision along the previously marked crease with a scalpel. The incision was carried down through the subcutaneous tissue and platysma muscle using electrocautery. Subplatysmal flaps were created in the cranial and caudal directions. The median raphe of the strap muscles was id entified and this was divided in vertical fashion using electrocautery. This exposed the thyroid gland, which was from its lateral attachments to the strap muscles on the right side using electrocautery. There was a single site of scarring leading into a small cystic nodule, presumably from the previous FNA. The middle thyroidal veins were ligated with 3-0 silk sutures and Harmonic scalpel. The inferior thyroid vessels were identified and divided using a combination of hand ties and harmonic scalpel. We then identified the recurrent laryngeal nerve as it ran in the tracheoesophagealgroove and followed this up to ligament of Pratt, ligating vessels to expose the nerve's anterior garcía rface. We then took down the upper pole thyroid vessels with a combination of 2- 0 and 3-0 silk sutures and Harmonic scalpel. The parathyroid glands were not clearly visualized. We then divided the attachments of the ligament of Pratt with sharp dissection and 3-0 silk sutures and divided the attachments of the thyroid off the pretracheal fascia past the midline with electrocautery. We divided thethyroid through its isthmus using the Harmonic scalpel, marked it with a stitch in the upper pole, and sent the specimen to pathology. The recurrent laryngeal nerve remained intact throughout. We then irrigated the operative field. A Valsalva to 30 millimeters of mercury was accomplished by Anesthesia. Hemostasis was assured. Surgicel was placed in the paratracheal space. We then closed the strap muscles using running 3-0 Vicryl suture, the platysma with interrupted 3-0Vicryl suture, and the skin with running 5-0 Prolene subcuticular suture, followed by placement of Dermabond and removal of the Prolene suture. The patient tolerated the procedure well. Sponge and needle counts were correct upon completion of the procedure. Infection Bundle used? N/A Attestation: Case Date: 10/12/2018 I was present and I participated during the entire procedure (does not need to include opening and closing). KRYSTINA BECKER MD 10/12/2018 * Brief Op Note - Krystina Becker MD - 10/12/2018 11:47 AM EDT Brief Operative Note Patient Name: Catie Alvares : [id number] MR#: [id number] Case Date: 10/12/2018 Surgeon: Surgeon(s) and Role: * Krystina Becker MD - Primary * Cleopatra Deluca MD - Resident Preoperative diagnosis: THYROID NODULE Postoperative diagnosis: THYROID NODULE Procedure(s) (LRB): THYROIDECTOMY, LOBECTOMY, TOTAL, UNILATERAL (WRVU 11.19) (N/A) FACIAL NERVE MONITORING, SETUP LARYNGEAL (WRVU 1.57) (N/A) Anesthesia: Anesthesia type not filed in the log. Findings: multinodular right hemithyroid with scarring at a single site, presumably attributable toFNA track. Right RLN intact throughout. Parathyroid glands not visualized. Complications: none apparent Intake: Intraprocedure Crystalloid Total Lactated Ringers Volume (mL) 400 mL Transfusion No data found in the last 1 encounters. Output: Estimated Blood Loss: 3 mL Urine Output:: (no urine output recorded) Other Output: (no other output recorded) Drains: none Specimens removed during surgery: Order Name Source Comment Collection Info Order Time SPECIMEN TO PATHOLOGY OR22 THYROID NODULE right lobe of thyroid - stitch in upper pole excision 10/12/2018 11:38 AM Time specimen removed from patient: 11:38 AM Number of tissue samples (in container) 1 Disposition: awakened from anesthesia, extubated and taken to the recovery room in a stable condition, having suffered no apparent untoward event. Condition: doing well without problems Attestation: Case Date: 10/12/2018 I was present and I participated during the entire procedure (does not need to include opening and closing). (Please see the Surgical Encounter Summary for any Implant and Specimen details pertinent to this patient.) documented in this encounter Plan of Treatment Not on file documented as of this encounter Procedures Procedure Name Priority Date/Time Associated Diagnosis Comments SURGICAL PATHOLOGY REPORT Routine 10/12/2018 11:38 AM EDT SPECIMEN TO PATHOLOGY Routine 10/12/2018 11:38 AM EDT Needle Electromyography, Larynx Global (42030) 10/12/2018 10:32 AM EDT THYROID NODULE Total Thyroid Lobectomy Unilateral W/Wo Isthmusectomy (53893) 10/12/2018 10:32 AM EDT THYROID NODULE documented in this encounter Results * (ABNORMAL) TSH (12/02/2018 8:53 AM EDT) TSH 5.69(H) 0.27 - 4.20 mcIU/mL [facility] Blood specimen (specimen) 12/02/2018 8:53 AM EDT 12/02/2018 9:00 AM EDT Narrative Resulting Agency Comment Spec In Lab Krystina Becker MD CHEMISTRY ORDERAB LES [facility] [place] [place] [address] * Surgical Pathology Report (10/12/2018 11:38 AM EDT) Surgical Pathology Report [id number] ? Location: [facility]; [facility]; The signing pathologist has (i) examined the relevant preparation(s) for the specimen(s) and (ii) rendered or confirmed the diagnosis(es). . ?Surgical Pathology DIAGNOSIS Right lobe of thyroid, excision: - Multiple adenomatous nodules with focal fibrosis and hemorrhage. - One parathyroid gland with ?? no diagnostic abnormality recognized. Electronically signed by: ??MD Cl, Samir Narvaez Verified: ??10/19/2018 ?Pathologist Performed at: ??-[facility] Dept. of Pathology, [place], [place] CLINICAL INFORMATION Specimen Submitted: A - Right lobe of thyroid- stitch in upper pole Clinical History and Diagnosis: Thyroid nodule SPECIMEN PROCESSING A - Labeled/Fixativ e: Right lobe of thyroid, stich in upper pole, fresh. Quantity/Size/W eight: Single, 4.1 x 1.9 x 1.1 cm. SPECIMEN DESCRIPTION: Resection Specimen: Intact, lupe-thyroidect ambreen, consisting of isthmus, right thyroid lobe. External Surface: purple, smooth. Isthmus: 1.6 x 0.4 cm. ??LESION ?Location: Lower pole. ?Description: Hemorrhagic, nodule. ?Size: 1.6 x 0.4 x 0.3 cm. ?Contour/capsu le: Encapsulated. ??LESION (2) ?Location: Lower pole. ?Description: Hemorrhagic, nodule. ?Size: 1.4 x 0.6 x 0.3 cm. ?Contour/capsu le: Encapsulated. Parenchyma: Brown, smooth. Inking: The thyroid capsule is inked black. The isthmic margin is inked blue. Sections/Proces sing: Serially sectioned from superior to inferior Small Business Director sections in 10 cassettes labeled A1-A10. ??AJ [facility] 10/12/2018 11:3 8 AM EDT Krystina Becker MD PATHOLOGY/CYTOLOG Y ORDERABLES Performing Organization Address [facility] Co de Phone Number [facility] [place] [address] * Specimen to Pathology (10/12/2018 11:38 AM EDT) AP Specimen 10/12/2018 11:3 8 AM EDT 10/12/2018 11:38 AM EDT Narrative [facility] - 10/12/2018 11:38 AM EDT Specimen requisition ordered. ??Separate Pathology report to follow Krystina Becker MD PATHOLOGY/CYTOLOG Y ORDERABLES Performing Organization Address [facility]/[place] [address] documented in this encounter Visit Diagnoses Diagnosis Thyroid nodule Nontoxic uninodular goiter documented in this encounter Administered Medications Inactive Administered Medications - up to 3 most recent administrations Medication Order MAR Action Action Date Dose Rate Site acetaminophen (TYLENOL) tablet 1,000 mg 1,000 mg, Oral, ONCE, 1 dose, On Thu10/12/18 at 0945, Administer with SIP of H2O only., Day of Surgery (Day of Procedure), Routine Given 10/12/2018 9:47 AM EDT 1,000 mg HYDROmorphone (DILAUDID) injection 0.2-0.4 mg 0.2-0.4 mg, Intravenous, EVERY 5 MIN PRN, Starting on 10/12/18 at 1219, Until 10/12/18 at 1520, Pain, Give 0.2 mg every 5 minutes PRN for mild to moderate pain (1-5) Give 0.4 mg every 5 minutes PRN for moderate to severe pain (6-10). Hold for respiratory rate less than 10 per minute. Maximum dose 4 mg over one hour. If multiple pain medications are ordered, start with hydromorphone or morphine and use fentanyl for breakthrough pain., PACU Recovery, Routine Given 10/12/2018 12:47 PM EDT 0.4 mg Given 10/12/2018 12:34 PM EDT 0.4 mg lactated ringers infusion 1,000 mL, at 100 mL/hr, Intravenous, CONTINUOUS, Starting on 10/12/18 at 0945, Until 10/12/18 at 1520, Day of Surgery (Day of Procedure) New Bag 10/12/2018 9:48 AM EDT 1,000 mLs 100 mL/hr ondansetron (ZOFRAN) injection 4 mg 4 mg, Intravenous, EVERY 30 MIN PRN, Starting on 10/12/18 at 1219, Until 10/12/18 at 1520, Nausea, May repeat 4 mg once in 30 minutes. If multiple antiemetics ordered, use ondansetron first and if ineffective use prochlorperazine second and if ineffective use promethazine, PACU Recovery Given 10/12/2018 12:23 PM EDT 4 mg documented in this encounter Active and Recently Administered Medications Times are shown in EDT. Scheduled Medication Order 10/10/2018 10/11/2018 10/12/2018 acetaminophen (TYLENOL) tablet 1,000 mg (COMPLETED) 1,000 mg, Oral, ONCE, 1 dose, On 10/12/18 at 0945, Administer with SIP of H2O only., Day of Surgery (Day of Procedure), Routine 0947 (Given - Provid er: Nanda Godwin RN) Continuous Medication Order 10/10/2018 10/11/2018 10/12/2018 lactated ringers infusion (CANCELED) 1,000 mL, at 100 mL/hr, Intravenous, CONTINUOUS, Starting on Thu10/12/18 at 0945, Until Thu10/12/18 at 1520, Day of Surgery (Day of Procedure) 0948 (New Bag - Prov ider: Nanda Godwin RN) PRN Medication Order 10/10/2018 10/11/2018 10/12/2018 BUpivacaine-EPINEPHrine 0.25 %-1:200,000 injection (CANCELED) ONCE PRN, Starting on Thu10/12/18 at 1056, Until Thu10/12/18 at 1721, Intra-Operative (Intra-Procedure), Routine 1056 (Given - Provid er: Cleopatra Deluca MD) HYDROmorphone (DILAUDID) injection 0.2-0.4 mg (CANCELED) 0.2-0.4 mg, Intravenous, EVERY 5 MIN PRN, Starting on Thu10/12/18 at 1219, Until e 10/12/18 at 1520, Pain, Give 0.2 mg every 5 minutes PRN for mild to moderate pain (1-5) Give 0.4 mg every 5 minutes PRN for moderate to severe pain (6-10). Hold for respiratory rate less than 10 per minute. Maximum dose 4 mg over one hour. If multiple pain medications are ordered, start with hydromorphone or morphine and use fentanyl for breakthrough pain., PACU Recovery, Routine 1234 (Given - Provid er: Rubia Cloe RN)1247 (Given - Provider: Rubia Cole RN) ondansetron (ZOFRAN) injection 4 mg (CANCELED) 4 mg, Intravenous, EVERY 30 MIN PRN, Starting on Thu10/12/18 at 1219, Until Tu10/12/18 at 1520, Nausea, May repeat 4 mg once in 30 minutes. If multiple antiemetics ordered, use ondansetron first and if ineffective use prochlorperazine second and if ineffective use promethazine, PACU Recovery 1223 (Given - Provid er: Rubia E Hadlock, RN) documented in this encounter Care Teams Commercial Accountant Relationship Specialty Start Date End Date Nathalie Pratt, CLINICAL RESEARCH SPECIALIST [address] [place] [address] PCP - General Family Medicine 07/16/18 07/02/22 documented as of this encounter
--- OUTSIDE RECORDS SUMMARY | 2023-08-31 13:52 | XMS_ITS | Encounter Summary ---
Author Organization [facility] Address [facility] [place] [address] Care Team Providers Care Ad Operations Coordinator Name Role Phone Nathalie Pratt APRN Primary Care Provider [phone] Encounter Details Date Type Department Care Team (Late st Contact Info) Description 10/12/2018 10:32 AM EDT Anesthesia Event [place] [address] Quentin Hodges MD [facility] [place] [address] Anesthesia Record Procedure Summary Procedure Name Responsible Anesthesiologist Anesthesia Start Time Anesthesia Stop Time THYROIDECTOMY, LOBECTOMY, TOTAL, UNILATERAL (WRVU 11.19) (Neck) Quentin Hodges MD 10/12/18 1032 10/12/18 1214 Events Date Time Event Comment 10/12/2018 0925 1032 AN Verify 1032 Start 1032 An Start Data 1040 An Induction 1045 An Intubation 1049 Anesthesia Ready 1103 Procedure Start 1206 Extubation/LMA Out 1206 an stop data 1214 Recovery or ICU Handoff Paula ent care was transferred to the destination unit staff after review of the patient's medical history, current anesthetic/surgical status and plan, according to the Provider Handoff Checklist. 1214 Stop Meds Name Total Midazolam 2 mg fentaNYL 50 mcg IV Lidocaine 100 mg Propofol 200 mg Rocuronium 20 mg PHENYLephrine 40 mcg Ondansetron 4 mg Dexamethasone 8 mg Neostigmine 3 mg Glycopyrrolate 0.4 mg Propofol INF 241.8 mg PHENYLephrine INF 84 mcg Esmolol 10 mg Ketorolac 15 mg Lactated Ringers 400 mL * Agents Name O2 Air N2O Sevoflurane (et) * Blood No blood administrations on file. Lines, Drains, and Airways Type Details Placement Removal (RETIRED) Peripheral IV Line - Single Lumen 10/12/18; 0946; basilic vein (medial side of arm), right; 22 gauge, 1 in length; Latia Godwin RN; distraction, tolerated well, appears comfortable; 1; basilic vein (medial side of arm), left, no redness, ecchymosis, warmth, swelling, pain, drainage; no longer indicated, removed per policy/procedure, catheter/device intact; 10/12/18; 1520 10/12/18 0946 by Nanda Godwin RN 10/12/18 1520 by Gloria Pascual RN ETT Mask Ventilation: Ea sy (1); ETT Type: Cuffed, Oral, NIM; ETT Size: 6 mm; Notes: Asleep, Pre-O2, Cricoid Pressure, Stylette; Attempts: 1; Laryngoscopy Grade: 1; ETT Placement Verified By: Auscultation, Capnometry, Visual; Removal Date: 10/12/18; Removal Time: 1206 10/12/18 1056 by Huey Enriquez MD 10/12/18 1206 by Huey Enriquez MD Incision 10/12/18; 1103; abdo men; horizontal; 10/07/21 (LDA cleanup utility RA#[id number]); 1715 (LDA cleanup utility RA#[id number]) 10/12/18 1103 by Gene Richter RN 10/07/21 1715 by Morena Mejia documented in this encounter Social History Tobacco Use Types Packs/Day Years Used Date Smoking Tobacco: Former Cigarettes Q uit: 1991 Smokeless Tobacco: Never Comments:lives with a smoker Sex and Gender Information Value Date Recorded Sex Assigned at Not on file Gender Identity Not on file Sexual Orientation Not on file documented as of this encounter OR Notes * Anesthesia Postprocedure Evaluation - Huey Enriquez - 10/12/2018 12:15 PM EDT Department of Anesthesiology Post-procedure Note Patient: Catie Alvares Procedure Summary Date: 10/12/18 Room / Location: [address] MAIN OR Anesthesia Start: 1032 Anesthesia Stop: 1214 Procedures: THYROIDECTOMY, LOBECTOMY, TOTAL, UNILATERAL (WRVU 11.19) (N/A Neck) FACIAL NERVE MONITORING, SETUP LARYNGEAL (WRVU 1.57) (N/A Neck) Diagnosis: (THYROID NODULE) Surgeon: Krystina Escobar MD Responsible Provider: Quentin Hodges MD Anesthesia Type: Not recorded ASA Status: 2 All Anesthesia Providers: Anesthesiologist: Quentin Hodges MD Reconnaissance Crewmember: Huey Enriquez MD Vitals Value Taken Time BP 142/77 10/12/2018 12:12 PM Temp 36.1 ??C (97 ??F) 10/12/2018 12:12 PM Pulse Resp SpO2 100 % 10/12/2018 12:13 PM Pain Level Vitals shown include unvalidated device data. Patient Location: PACU/[facility] Level of Consciousness: Awake and Alert Pain Management: Satisfactory Analgesia PONV: None Cardiovascular Status: At Baseline Respiratory Status: At Baseline and Supplemental O2 (NC or FM) Postoperative Fluid Status: Intravascular EUvolemia Possible Anesthetic Complications: NONE apparent at time of evaluation Final Primary Anesthesia Type: General (The anesthetic type performed was the same as planned.) Comments: * Anesthesia Preprocedure Evaluation - Quentin Hodges MD - 10/11/2018 10:25 AM EDT Pre-Anesthesia Evaluation for: Catie Alvares a 58 y.o. female. Procedure(s): THYROIDECTOMY, LOBECTOMY, TOTAL, UNILATERAL (WRVU 11.19) FACIAL NERVE MONITORING, SETUP LARYNGEAL (WRVU 1.57) There are no active problems to display for this patient. Past Medical History: Diagnosis Date ??? ADHD ??? Asthma ??? Depression Possibly bipolar ??? HLD (hyperlipidemia) ??? HTN (hypertension) Past Surgical History: Procedure Laterality Date ??? CHOLECYSTECTOMY, LAPAROSCOPIC ??? KNEE CARTILAGE SURGERY Left ??? ROTATOR CUFF REPAIR Right Social History Tobacco Use ??? Smoking status: Former Smoker Last attempt to quit: 1991 Years since quittin.6 ??? Smokeless tobacco: Never Used ??? Tobacco comment: lives with a smoker Substance Use Topics ??? Alcohol use: Not on file Social History Substance and Sexual Activity Drug Use Not on file No Known Allergies Medications: MAR and/or home medications have been reviewed. Physical Exam: There were no vitals filed for this visit. There is no height or weight on file to calculate BMI. Airway Assessment: Mallampati: II TM distance: >3 FB Neck ROM: full Cardiovascular Assessment: cardiovascular exam normal Pulmonary Assessment: breath sounds clear to auscultation pulmonary exam normal Dental Assessment: - normal exam Misc Assessment: Anesthesia Plan: ASA 2 with a(n) intravenous induction 58 yo f will undergo thyroidectomy in setting of thyroid nodule. Mhx notable for HTN, HLD, asthma, possibly bipolar disorder. NKA. Former smoker (quit in 1990 after 9 years < 1ppd). No EtOH use. Based on chart review no indication of cardiac or pulmonary disease. No cardiac/pulminary studies on file. Takes lamotrigine, bupropion, lisinopril, atorvastatin, montelukast and Proair HFA. No labs on file. Will plan on GA with nerve monitoring (NIM tube). TIVA with propofol/remifentanil. Succinylcholine for intubation. Pt seen chart reviewed Agree with above NPO -[facility] Region - Other Informed Consent: Anesthetic plan and risks discussed with patient. Use of blood products discussed with patient who consented to blood products. Plan discussed with FIELD TECHNICAL SUPPORT CONSULTANT. PAT Clinic Note documented in this encounter Plan of Treatment Not on file documented as of this encounter Visit Diagnoses Not on filedocumented in this encounter Administered Medications Inactive Administered Medications - up to 3 most recent administrations Medication Order MAR Action Action Date Dose Rate Site dexamethasone (DECADRON) injection PRN, Starting on Thu10/12/18 at 1114, Until Thu10/12/18 at 1214, Anesthesia Intra-op, Routine Given 10/12/2018 11:14 AM EDT 8 mg esmolol (BREVIBLOC) injection PRN, Starting on Thu10/12/18 at 1134, Until Thu10/12/18 at 1214, Anesthesia Intra-op, Routine Given 10/12/2018 11:34 AM EDT 10 mg fentaNYL 50 mcg/mL multi-dose injection PRN, Starting on Thu10/12/18 at 1115, Until Thu10/12/18 at 1214, Anesthesia Intra-op, Routine Given 10/12/2018 11:15 AM EDT 50 mcg glycopyrrolate (ROBINUL) multi-dose injection PRN, Starting on Thu10/12/18 at 1143, Until Thu10/12/18 at 1214, Anesthesia Intra-op, Routine Given 10/12/2018 11:43 AM EDT 0.4 mg ketorolac (TORADOL) injection PRN, Starting on Thu10/12/18 at 1142, Until Thu10/12/18 at 1214, Anesthesia Intra-op, Routine Given 10/12/2018 11:42 AM EDT 15 mg lactated ringers infusion CONTINUOUS PRN, Starting on Thu10/12/18 at 1032, Until Thu10/12/18 at 1214, Anesthesia Intra-op New Bag 10/12/2018 10:32 AM EDT lidocaine (PF) (XYLOCAINE) 100 mg/5 mL (2 %) injection PRN, Starting on Thu10/12/18 at 1040, Until Thu10/12/18 at 1214, Anesthesia Intra-op, Routine Given 10/12/2018 10:40 AM EDT 100 mg midazolam (PF) (VERSED) multi-dose injection PRN, Starting on Thu10/12/18 at 1110, Until Thu10/12/18 at 1214, Anesthesia Intra-op, Routine Given 10/12/2018 11:10 AM EDT 2 mg neostigmine (BLOXIVERZ) injection PRN, Starting on Thu10/12/18 at 1143, Until Thu10/12/18 at 1214, Anesthesia Intra-op, Routine Given 10/12/2018 11:43 AM EDT 3 mg ondansetron (ZOFRAN) injection PRN, Starting on Thu10/12/18 at 1142, Until Thu10/12/18 at 1214, Anesthesia Intra-op, Routine Given 10/12/2018 11:42 AM EDT 4 mg PHENYLephrine (RIAZ-SYNEPHRINE) 20 mg in sodium chloride 250 mL (standard ADULT & Pedi greater than 20kg) infusion CONTINUOUS PRN, Starting on Thu10/12/18 at 1103, Until Thu10/12/18 at 1214, Anesthesia Intra-op, Routine Rate/Dose Change 10/12/2018 11:06 AM EDT 2 mcg/min 1.5 mL/hr New Bag 10/12/2018 11:03 AM EDT 10 mcg/min 7.5 mL/hr PHENYLephrine in NS (PF) (RIAZ-SYNEPHRINE) 0.8 mg/10 mL (80 mcg/mL) multi-dose injection Syrg PRN, Starting on Thu10/12/18 at 1144, Until Thu10/12/18 at 1214, Anesthesia Intra-op, Routine Given 10/12/2018 11:44 AM EDT 40 mcg propofol (DIPRIVAN) 10 mg/mL bolus injection (Anesthesia) PRN, Starting on Thu10/12/18 at 1040, Until Thu10/12/18 at 1214, Anesthesia Intra-op Given 10/12/2018 10:40 AM EDT 200 mg propofol (DIPRIVAN) infusion CONTINUOUS PRN, Starting on Thu10/12/18 at 1049, Until Thu10/12/18 at 1214, Anesthesia Intra-op, Routine Restarted 10/12/2018 11:39 AM EDT 50 mcg/kg/min 27.9 mL/hr New Bag 10/12/2018 10:49 AM EDT 100 mcg/kg/min 55.8 mL/ hr rocuronium (ZEMURON) multi-dose injection PRN, Starting on Thu10/12/18 at 1040, Until Thu10/12/18 at 1214, Anesthesia Intra-op, Routine Given 10/12/2018 10:40 AM EDT 20 mg documented in this encounter Care Teams Ad Operations Coordinator Relationship Specialty Start Date End Date Nathalie Pratt APRN [address] [place] [address] PCP - General Family Medicine 07/16/18 07/02/22 documented as of this encounter
--- OUTSIDE RECORDS SUMMARY | 2023-08-31 13:52 | XMS_ITS | Encounter Summary ---
[place] [address] Care Team Providers Care Construction Superintendent Name Role Phone Gabriel, Loraine Moyer APRN Primary Care Provider [phone] Reason for Referral * Consultation (Routine) - Closed Specialty Diagnoses / Procedures Referred By Veena t Referred To Contact Weight and Wellness Diagnoses Over weight Monica Ospina MD [address] [place] [address] [place] [address] [facility] [place] [address] Referral ID Status Reason Start Date Expiration Date V isits Requested Visits Authorized [id number] Closed Consult, Test & Treat PCP Updated and/or Approved 07/03/2022 07/03/2023 6 6 Encounter Details Date Type Department Care Team (Late st Contact Info) Description 07/03/2022 Transcribe Orders eDH Incoming Referrals [phone] Monica Ospina MD [address] [place] [address] [place] [address] Over weight Social History Tobacco Use Types Packs/Day Years Used Date Smoking Tobacco: Former Cigarettes Q uit: 1991 Smokeless Tobacco: Never Comments:lives with a smoker Sex and Gender Information Value Date Recorded Sex Assigned at Not on file Gender Identity Not on file Sexual Orientation Not on file documented as of this encounter Plan of Treatment Scheduled Referrals Name Type Priority Associated Diagnoses Orde r Schedule Referral to [facility] Outpatient Referral Routine Over weight Ordered: 07/03/2022 documented as of this encounter Visit Diagnoses Diagnosis Over weight Overweight documented in this encounter Care Teams Construction Superintendent Relationship Specialty Start Date End Date Loraine Rios, SERVER ADMINIST[place] [address] PCP - General Family Medicine 07/03/22 documented as of this encounter
--- OUTSIDE RECORDS SUMMARY | 2023-08-31 13:52 | XMS_ITS | Encounter Summary ---
Author Organization [facility] Address [address] [place] [address] Care Team Providers Care Ems Coordinator Name Role Phone Unavailable Primary Care Provider Unavailabl e Encounter Details Date Type Department Care Team (Late st Contact Info) Description 03/13/2005 Results Only [facility] - [facility] [address] [place] [address] Rosalee Bryant, GEARMAN [address] [facility],[address] [address] Social History Tobacco Use Types Packs/Day Years Used Date Smoking Tobacco: Never Assessed Sex and Gender Information Value Date Recorded Sex Assigned at Not on file Gender Identity Not on file Sexual Orientation Not on file documented as of this encounter Plan of Treatment Not on file documented as of this encounter Procedures Procedure Name Priority Date/Time Associated Diagnosis Comments CYTOPATHOLOGY Routine 03/13/2005 0:00 EST documented in this encounter Results * CYTOPATHOLOGY (03/13/2005 0:00 EST) Pathology Report: CYTOPATHOLOGY REPORT Reports generated via electronic interface contain original data; however they are lacking the format of the original report. Caution should be taken when reading/interpreti ng unformatted reports. Name: ? ARA WAGONER ? Accession #: ? [id number] : ? 1960 (Age: 44) ??F ?Collect Date: ? 03/13/2005 Location: ? [facility] ? Receive Date: ? 03/17/2005 Provider: ?ROSALEE BRYANT GEARMAN Copy to: ? Specimen/Source: ?ThinPrep Pap Test, Cervix/Endocervix, processed on [employer] ThinPrep Imaging System, with manual evaluation Last Menstrual Period: ? 02/24/05 Other: ? HPVA - HPV testing requested if ASC-US on the current ThinPrep Pap test. ? SPECIMEN ADEQUACY ? Satisfactory for Evaluation - transformation zone component present GENERAL CATEGORIZATION ? Negative for Intraepithelial Lesion or Malignancy ? Document reviewed and electronically signed by: ? VASQUEZ Fry(ASCP) ? Report Date: ??03/18/2005 12:20 End of Report MITZ[facility] COLE 03/13/2005 03/17/2005 Rosalee Bryant NP PATHOLOGY ORDERABLES MITZI COLE [address] [place] [address] documented in this encounter Visit Diagnoses Not on filedocumented in this encounter
--- OUTSIDE RECORDS SUMMARY | 2023-08-31 13:52 | XMS_ITS | Encounter Summary ---
Author Organization [facility] [place] [address] Care Team Providers Care Business Trainer Name Role Phone Nathalie Pratt APRN Primary Care Provider [phone] Reason for Visit * Consultation (Urgent) - Closed Specialty Diagnoses / Procedures Referred By Veena barrow Referred To Contact Endocrinology Diagnoses MULTIPLE THYROID NODULES THYROID MASS Nathalie Pratt APRN [address] [place] [address] [facility] [address] [place] [phone] Referral ID Status Reason Start Date Expiration Date V isits Requested Visits Authorized [id number] Closed Consult, Test & [facility] Connection [facility] 07/16/2018 07/16/2019 1 1 Encounter Details Date Type Department Care Team (Late st Contact Info) Description 07/28/2018 3:15 PM EDT Office Visit [place] [address] Wesley Lee MD [facility] [place] [address] Yelena Villa MD [facility] [place] [address] Thyroid nodule Social History Tobacco Use Types Packs/Day Years Used Date Smoking Tobacco: Former Cigarettes Q uit: 1991 Smokeless Tobacco: Never Comments:lives with a smoker Sex and Gender Information Value Date Recorded Sex Assigned at Not on file Gender Identity Not on file Sexual Orientation Not on file documented as of this encounter Last Filed Vital Signs Vital Sign Reading Time Taken Comments Blood Pressure 162/86 07/28/2018 2:44 PM EDT Pulse 102 07/28/2018 2:44 PM EDT Temperature 37.4 ??C (99.4 ??F) 07/28/2018 2:44 PM ED T Respiratory Rate 20 07/28/2018 2:44 PM EDT Oxygen Saturation 96% 07/28/2018 2:44 PM EDT Inhaled Oxygen Concentration - - Weight 94.1 kg (207 lb 6.4 oz) 07/28/2018 2:44 P M EDT Height 160 cm (5' 3) 07/28/2018 2:44 PM EDT Body Mass Index 36.74 07/28/2018 2:44 PM EDT documented in this encounter Progress Notes * Yelena Villa MD - 07/28/2018 3:15 PM EDT ENDOCRINOLOGY NEW PATIENT APPOINTMENT Patient Name: Catie Alvares Date of Appointment: 07/28/2018 ID: Catie Alvares is a 58 yoa M with PMH of asthma, ADHD, depression, HLD, and HTN who presents to Endocrine clinic for evaluation of thyroid nodule. History of Presenting Illness: Ms. Alvares developed a sore throat 6 weeks ago and during that time noticed a lump in the right aspect of her neck. Her PCP performed a TSH, which was 0.78 uIU/ml and thyroid ultrasound 07/13/18 demonstrated: R lobe 4.8 x 3.2 x 1.4 cm L lobe 4.5 x 1.6 x 1.2 cm Numerous small thyroid nodules bilaterally predominantly <0.6 cm, with a 3.9 x 2.6 x 3.0 cm mixed echogenicity mass in the inferior pole of the right thyroid lobe. The nodule was noted to appear avascular, but with a solid component. ? Compressive symptoms/Nodule symptom review: Globus sensation -??Yes Difficulty swallowing -??Yes-states it is uncomfortable when swallowing, but no food or pills getting stuck Difficulty breathing -??only when exerting herself Hoarseness or voice change -??denies Family history of thyroid disease - denies No history of radiation exposure Past Medical History: Asthma ADHD Depression HLD HTN Past Surgical History: Cholecystectomy Left knee surgery for torn meniscus Right shoulder rotator cuff tear Skin grafts right forearm Current Outpatient Medications on File Prior to Visit Medication Sig Dispense Refill ??? PROAIR HFA 90 mcg/actuation HFA Aerosol Inhaler inhale 2 puffs by mouth BEFORE EXERCISE if needed 0 ??? atorvastatin (LIPITOR) 20 mg Tablet take 1 tablet by mouth at bedtime 0 ??? buPROPion (WELLBUTRIN) 100 mg Tablet take 1 tablet by mouth twice a day 0 ??? montelukast (SINGULAIR) 10 mg Tablet take 1 tablet by mouth once daily if needed for asthma 0 ??? lisinopril (PRINIVIL;ZESTRIL) 10 mg Tablet take 1 tablet by mouth once daily 0 ??? MAGNESIUM GLYCINATE ORAL Take by mouth. ??? inhalational spacing device Spacer by [facility].(Non-Drug; Combo Route) route. ??? cholecalciferol, Vitamin D3, (VITAMIN D) 1,000 unit Capsule Take by mouth. No current facility-administered medications on file prior to visit. Allergies: No Known Allergies ROS: Constitutional: tiredness+, weight loss+-5 lbs since making dietary changes, no heat or cold intolerance Neurological: No headache or weakness. No seizure, fainting or dizziness Eyes: No recent vision changes ENT: No dysphagia, dental issues Cardiovascular: No chest pain or palpitations Respiratory: No cough, wheezing, shortness of breath+-exertional GI: Normal appetite. No nausea, vomiting, diarrhea, constipation : No frequent urinary tract infections or polyuria Musculoskeletal: joint aches+-left knee and R shoulder, muscle pain. No back pain Psychiatric: depression, anxiety+-slight worsening lately Social History: Lives in [place], [place] with her and 1 of her 2 daughters. Occupation: On disability after knee injury, previously worked at [employer] Ex-smoker- quit in 1990 after 9 years of <1 pack per day EtOH: None Family History: No family history of thyroid disease or cancer Mother-stroke Father-colon cancer, dementia, of septic shock Sister-pancreatic cancer Vitals Last value Temperature Temp: 37.4 ??C (99.4 ??F) Heart Rate Heart Rate: (!) 102 Blood Pressure BP: 162/86 Respiratory Rate Resp: 20 Body mass index is 36.74 kg/m??. Physical Exam: General appearance: pleasant female patient sitting comfortably HEENT: no lid lag, stare, proptosis Neck: No thyromegaly, tender nodule palpated on right with superior movement on swallowing, no cervical LAD appreciated CVS: RRR (HR 96) Pulm: Breathing comfortably on RA Neuro: Biceps and KJ 1+ bilaterally, hand tremor visible bilaterally Pertinent Laboratory Findings: TSH 0.78 mcIU/ml Assessment: Catie Alvares is a 58 yoa M with PMH of asthma, ADHD, depression, HLD, and HTN who presents to Endocrine clinic for evaluation of thyroid nodule. The nodule has very reassuring characteristics (partially cystic with no suspicious features) making suspicion for malignancy low (<3%). However, asnodule is large (4.0 x 2.4 x 3.1 cm) and she is having compressive symptoms, will refer to Endocrine Surgery for discussion of surgical management. Given nodule meets size criteria for FNA despite low suspicious features (>2 cm) and cytology results may alter surgical approach, FNA was recommended. After discussion of the procedure, risks and benefits, FNA was performed on this nodule without c omplication. The potential for cytology to return in a bazan zone (atypia of undetermined significance) was discussed and one sample was obtained for Thyroseq in case molecular testing required. Plan: #Thyroid nodule (R lobe partially cystic) -TSH recently performed and WNL -Referral placed to Endocrine surgery based on size with compressive symptoms -FNA??performed, will await cytology +/- molecular testing?? -sub-centimeter solid, hypoechoic nodule in left lobe will require surveillance US in 1 year if only R hemithyroidectomy performed This case has been discussed with Dr. Lee, Staff Adzing And Boring Machine Feeder Yelena Villa PGY 4 Endocrinology Pager [phone] * Yelena Villa MD - 07/28/2018 3:15 PM EDT THYROID FNA BIOPSY NOTE Informed consent was obtained after a discussion of the nature of the procedure, its risks, benefits and possible alternatives. Immediately prior to the start of the procedure a time out was taken: - The patient's identity was confirmed using two identifiers - The intended procedure, patient positioning and availability of all required equipment was also confirmed. - The proper site/side of the nodule was confirmed by visualization with ultrasound. The biopsy site on the patient's neck was prepared using isopropyl alchohol. 4 passes of a 25g needle were performed at each site. The needle placement was ultrasound guided. The needle was visualized in the nodule in each pass. The procedure was well tolerated by the patient. The bleeding was minimal. There was no immediate complications. Yelena Villa PGY 4 Endocrinology Pager [phone] * Wesley Lee MD - 07/28/2018 3:15 PM EDT THYROID ULTRASOUND: ?? Indication: Thyroid nodule ?? Date: 07/28/2018 ?? Comparison: OSH US 07/13/18 ?? Real-time images of the thyroid gland were obtained during this examination. ?? All measurements are given as Longitudinal X AP x Transverse ?? Right Lobe: There is a partially cystic nodule occupying majority of right lobe measuring 4.0 x 2.4 x 3.1 cm with regular, well differentiated borders, no microcalcifications, and no increase in peripheral or central vascularity. ?? Left Lobe: The left lobe has normal echotexture. There is a solid, hypoechoic nodule in the mid lobe measuring 0.6 x 0.4 x 0.6 cm with regular, welldifferentiated borders and no microcalcifications. There are 2 Spongiform nodules that are both sub-centimeter. ? Images reviewed with the attending Dr. Lee prior to compiling this report I personally reviewed these images and Dr Villa's report and agree with her findings Wesley Lee MD ?? * Wesley Lee MD - 07/28/2018 3:15 PM EDT I have seen the patient and reviewed Dr Villa's history and I agree with the details as written. The assessment and plan were formulated in discussion with me and I agree with them as documented. I would add: I reviewed recent PCP note scanned into the medical record from July 2018, and in my review I saw that the patient had significant enlargement of right neck and so US thyroid was ordered in this setting Review of systems as stated, otherwise it is negative VS reviewed General: pleasant, sitting comfortably, no distress Eyes: EOMI, no proptosis, no periorbital edema Mouth/Face: face is not round/red, nose is normal size, mucous membranes moist Neck: no supraclavicular fat pads, +large palpable nodule in area of right thyroid Resp: breathing comfortably on room air, no audible stridor, normal respiratory effort MSK: moving all 4 extremities normally, normal female musculature Neuro: no tremor, CN II-XII grossly intact Skin: no visible acanthosis, normal temperature, no jaundice or palor Psych: normal affect, alert and oriented to person/place/time Right thyroid FNA path: DISCUSSION Thyroid, right (US-guided FNA): Nondiagnostic (see note). Cyst fluid only. Specimen processed and examined, but nondiagnostic because the specimen is comprised ??mostly of macrophages. ??Rare cyst-lining cells are also seen. I supervised the entire FNA procedure as described separately in Dr Villa's note Assessment/plan: Agree with plan as written. Nodule is very low suspicion by АННА criteria, and the fact that it is nondiagnostic I believe strongly suggests that it is a benign nodule. We reviewed the initial slides with cytology technicians and there appeared be be mainly macrophages and cyst lining cells, along with some cyst fluid. Agree that given significant size and compressive symptoms, hemithyroidectomy is warranted. She has a small left thyroid nodule that is TIRADS 4 given hypoechoic, solid and has small area of lobulation, that should be followed up in 1 year with repeat US. A note will be sent to the referring provider (Nathalie Pratt APRN) Wesley Lee MD Hospital Admitting Clerkmoisture tester Endocrinology Section [facility] documented in this encounter Plan of Treatment Not on file documented as of this encounter Procedures Procedure Name Priority Date/Time Associated Diagnosis Comments NON-BARREL INSPECTOR TIGHT FINAL REPORT Routine 07/28/2018 4:28 PM EDT CYTOPATHOLOGY NON-GYNECOLOGICAL Routine 07/28/2018 4:28 PM EDT Thyroid nodule documented in this encounter Results * Non-Wood Casket Assembler Final Report (07/28/2018 4:28 PM EDT) Diagnosis Discussion [id number] ? Location: 5C The signing pathologist has (i) examined the relevant preparation(s) for the specimen(s) and (ii) rendered or confirmed the diagnosis(es). . ? Non-Wood Casket Assembler Final DIAGNOSIS Nondiagnostic Electronically signed by: ??Román CONTE, Luc Richardson Verified: ??07/29/2018 ?Pathologist Performed at: ??-[facility] Dept. of Pathology, [place], [place] DISCUSSION Thyroid, right (US-guided FNA): Nondiagnostic (see note). Cyst fluid only. Specimen processed and examined, but nondiagnostic because the specimen is comprised mostly of macrophages. ??Rare cyst-lining cells are also seen. Note: Recommend correlation with cyst size and complexity on ultrasound to assist with further management of the lesion. CLINICAL INFORMATION Specimen Source : Thyroid, right (US-guided FNA, assisted) Pertinent Clinical Data and Significant Therapy: 58 yo F with spongiform nodule in R lobe measuring 4.0 x 2.4 x 3.1 cm Clinical Impression : 4.0 x 2.4 x 3.1 cm nodule R lobe meeting FNA criteria Pertinent Radiologic Findings ??: (not provided) Gross Description: Received in CytoLyt approximately 15 mL total volume of clear, stefan fluid. Total Preparation: Liquid-Based Prep 1; Diff-Quik 1; Pap Stain 1. A separate sample was received for potential molecular testing. Fine Needle Aspiration Immediate Assessment: Total number of passes: 4 Evaluation Episode #1 (1 slide): Inadequate for final diagnosis. Mostly macrophages w/ rare follicular cells. Immediate Assessment by: Luc France MD. Note: The above attending cytopathologist personally examined the Immediate Assessment slides and rendered the Immediate Assessment. Such assessments are preliminary; see Diagnosis and Discussion for final interpretation. 07/29/2018 4:16 PM EDT [facility] 07/28/2018 4:28 PM EDT Yelena Villa MD PATHOLOGY/CYTOLOGY ORDERABLES Performing Organization Address City/[facility]/ZIP Co de Phone Number [facility] [place] [address] * Cytopathology Non-Gynecological (07/28/2018 4:28 PM EDT) AP Specimen 07/28/2018 4:28 PM EDT 07/28/2018 4:28 PM EDT Narrative [facility] - 07/28/2018 4:28 PM EDT Specimen requisition ordered. ??Separate Pathology report to follow Wesley Lee MD PATHOLOGY/CYTOLOGY ORDERABLES Performing Organization Address City/[facility]/[place] [address] documented in this encounter Visit Diagnoses Diagnosis Thyroid nodule Nontoxic uninodular goiter documented in this encounter Care Teams Business Trainer Relationship Specialty Start Date End Date Nathalie Pratt, AGUEDA [address] [place] [address] PCP - General Family Medicine 07/16/18 07/02/22 documented as of this encounter
--- OUTSIDE RECORDS SUMMARY | 2023-08-31 13:52 | XMS_ITS | Encounter Summary ---
Author Organization [facility] Address [address] [place] [address] Care Team Providers Care Cloth Bleaching Supervisor Name Role Phone Umm Miller NP Primary Care Provider [phone] Encounter Details Date Type Department Care Team (Late st Contact Info) Description 11/14/2020 Lab Requisition [facility] Pathology & Laboratory Medicine - [address] [address] Nathalie Pratt NP [facility] [address] [place], [place] [id number] Encounter for other general examination Social History Tobacco Use Types Packs/Day Years Used Date Smoking Tobacco: Never Assessed Sex and Gender Information Value Date Recorded Sex Assigned at Not on file Gender Identity Not on file Sexual Orientation Not on file documented as of this encounter Plan of Treatment Not on file documented as of this encounter Procedures Procedure Name Priority Date/Time Associated Diagnosis Comments PAP TEST Today 11/13/2020 11:30 EDT Encounter for other general examination documented in this encounter Results * PAP TEST (11/13/2020 11:30 EDT) Specimens A. Cervix and/or Endocervix , ThinPrep Imaging System with Manual Evaluation 11/27/2020 15:48 EDT [facility] Specimen Adequacy Satisfactory for Evaluation - transformation zone component present 11/27/2020 15:48 EDT [facility] General Categorization Negative for intraepithelial lesion or malignancy 11/27/2020 15:48 EDT [facility] Attestation . 11/27/2020 15:48 EDT [facility] at 1548 Clinical History See below 11/28/19 15:48 EDT [facility] Performing Lab [facility] 11/27/2020 15:48 EDT [facility] Scanned Images 11/27/2020 15:48 EDT [facility] Papanicolaou smear specimen (specimen) CERVIX UTERI STRUCTURE / Unknown 11/13/2020 11:30 EDT 11/14/2020 16:17 EDT Nathalie Pratt NP PATHOLOGY ORDERABLES [facility] [address] [place] [address] documented in this encounter Visit Diagnoses Diagnosis Encounter for other general examination documented in this encounter Care Teams Cloth Bleaching Supervisor Relationship Specialty Start Date End Date Umm Miller NP PCP - General 01/06/14 07/20/22 documented as of this encounter
--- OUTSIDE RECORDS SUMMARY | 2023-08-31 13:52 | XMS_ITS | Encounter Summary ---
[place] [address] Care Team Providers Care Crane Crew Supervisor Name Role Phone Nathalie Pratt APRN Primary Care Provider Encounter Details Date Type Department Care Team (Latest Contact Info) Description 12/02/2018 8:45 AM EDT Laboratory Appointment Lab [address] [place] [address] Thyroid nodule Social History Tobacco Use Types [...] Procedure Name Priority Date/Time Associated Diagnosis Comments HC VENIPUNCTURE Routine 12/02/2018 8:53 AM EDT Thyroid nodule documented in this encounter Results * (ABNORMAL) TSH (12/02/2018 8:53 AM EDT) TSH 5.69(H) 0.27 - 4.20 mcIU/mL [facility] Blood specimen (specimen) 12/02/2018 8:53 AM EDT 12/02/2018 9:00 AM EDT Narrative Resulting Agency Comment Spec In Lab Krystina Escobar MD CHEMISTRY ORDERAB LES [facility] [place] [address] documented in this encounter Visit Diagnoses Diagnosis Thyroid nodule Nontoxic uninodular goiter documented in this encounter Care Teams Crane Crew Supervisor Relationship Specialty Start Date End Date Nathalie Pratt, RETAIL SERVICE TECHNICIAN [address] [place] [address] PCP - General Family Medicine 07/16/18 07/02/22 documented as of this encounter
--- OUTSIDE RECORDS SUMMARY | 2023-08-31 13:52 | XMS_ITS | Encounter Summary ---
Author Organization [facility] Address [address] [place] [address] Care Team Providers Care Architectural Sales Consultant Name Role Phone Unavailable Primary Care Provider Unavailabl e Encounter Details Date Type Department Care Team (Late st Contact Info) Description 11/05/2010 Results Only [facility] Laboratory Services - [facility] [address] [place] [address] Rosalee Bryant, STAFF SOFTWARE ENGINEER [address] [facility],[address] [address] Social History Tobacco Use Types Packs/Day Years Used Date Smoking Tobacco: Never Assessed Sex and Gender Information Value Date Recorded Sex Assigned at Not on file Gender Identity Not on file Sexual Orientation Not on file documented as of this encounter Plan of Treatment Not on file documented as of this encounter Procedures Procedure Name Priority Date/Time Associated Diagnosis Comments PAP TEST- RESULT ONLY Routine 11/05/2010 0:00 EDT documented in this encounter Results * PAP TEST- RESULT ONLY (11/05/2010 0:00 EDT) Pathology Report: CYTOPATHOLOGY REPORT Reports generated via electronic interface contain original data; however they are lacking the format of the original report. Caution should be taken when reading/interpreti ng unformatted reports. Name: ? ARA WAGONER ? Accession #: ? [id number] ? : ? 1960 (Age: 50) ??F ?Collect Date: ? 11/05/2010 ? Location: ? [facility] ? Receive Date: ? 11/07/2010 ? Provider: ROSALEE BRYANT STAFF SOFTWARE ENGINEER Copy to: ? Final Report SPECIMEN ADEQUACY ? Satisfactory for Evaluation - transformation zone component present GENERAL CATEGORIZATION ? Negative for Intraepithelial Lesion or Malignancy ?? Last Menstural Period: 10/12/10 Specimen/Source: ??Pap Test, Cervix/Endocervix, ThinPrep Imaging System with manual evaluation Document reviewed and electronically signed by: ? Keena Zamora, CT(ASCP) ? Report ??Date: 11/13/2010 09:54 HPV with Pap Test ? Date Ordered: ? 11/13/2010 ? Status: ?? Signed Out ?Date Complete: ? 11/18/2010 ? By: ??System Interface ? Date Reported: ? 11/18/2010 ? Interpretation RESULT: Negative for HPV types 16, 18, 31, 33, 35, 39, 45, 51, 52, 56, 58, 59, and 68. Comments Document reviewed and electronically signed by: ? System Interface ? Report date: 11/18/2010 By the signature above, the attending physician certifies that he/she has personally conducted a gross and/or microscopic examination of the described specimens and rendered or confirmed the above diagnosis. End of Report [facility] 11/05/2010 11/07/2010 Rosalee Bryant NP PATHOLOGY ORDERABLES Performing Organization Address City/State/[facility] Co de Phone Number [facility] [address] [address] documented in this encounter Visit Diagnoses Not on filedocumented in this encounter
--- OUTSIDE RECORDS SUMMARY | 2023-08-31 13:52 | XMS_ITS | Encounter Summary ---
Author Organization [facility] Address [address] [place] [address] Care Team Providers Care Matte Cutter Name Role Phone Unavailable Primary Care Provider Unavailabl e Encounter Details Date Type Department Care Team (Late st Contact Info) Description 08/31/2002 Results Only [facility] [address] [place] [address] Rosalee Bryant, FOOTWEAR STITCHER [address] [facility],[address] [address] Social History Tobacco Use Types [...] Priority Date/Time Associated Diagnosis Comments CYTOPATHOLOGY Routine 08/31/2002 0:00 EDT documented in this encounter Results * CYTOPATHOLOGY (08/31/2002 0:00 EDT) Pathology Report: CYTOPATHOLOGY REPORT Reports generated via electronic interface contain original data; however they are lacking the format of the original report. Caution should be taken when reading/interpreti ng unformatted reports. Name: ? ARA WAGONER ? Accession #: ? [id number] : ? 1960 (Age: 42) ??F ?Collect Date: ? 08/31/2002 Location: ? [facility] ? Receive Date: ? 09/02/2002 Provider: ?ROSALEE BRYANT FOOTWEAR STITCHER Copy to: ? Specimen/Source: ?ThinPrep Pap Test, Cervix/Endocervix Last Menstrual Period: ? 08/10/02 Other: ? HPVA - HPV testing requested if ASC-US on the current ThinPrep Pap test. ? SPECIMEN ADEQUACY ? Satisfactory for Evaluation - transformation zone component present - scant squamous epithelial component secondary to excessive blood GENERAL CATEGORIZATION ? Negative for Intraepithelial Lesion or Malignancy ? Document reviewed and electronically signed by: ? LEVI Lanza(ASCP) ? Report Date: ??09/07/2002 10:19 End of Report [facility] 08/31/2002 09/02/2002 Rosalee Bryant NP PATHOLOGY ORDERABLES [facility] [address] [place] [address] documented in this encounter Visit Diagnoses Not on filedocumented in this encounter
--- OUTSIDE RECORDS SUMMARY | 2023-08-31 13:52 | XMS_ITS | Encounter Summary ---
Author Organization [facility] [place] [address] Care Team Providers Care Delicatessen Slicer Name Role Phone Nathalie Pratt AGUEDA Primary Care Provider Encounter Details Date Type Department Care Team (Late st Contact Info) Description 12/02/2018 9:45 AM EDT Office [place] [address] Abbi Roa APRN [facility] [place] [address] Thyroid nodule Social History Tobacco Use Types Packs/Day Years Used Date Smoking Tobacco: Former Cigarettes Q uit: 1992 Smokeless Tobacco: Never Comments:lives with a smoker Sex and Gender Information Value Date Recorded Sex Assigned at Not on file Gender Identity Not on file Sexual Orientation Not on file documented as of this encounter Last Filed Vital Signs Vital Sign Reading Time Taken Comments Blood Pressure 137/73 12/02/2018 9:35 AM EDT Pulse 83 12/02/2018 9:35 AM EDT Temperature 37.2 ??C (99 ??F) 12/02/2018 9:35 AM EDT Respiratory Rate 16 12/02/2018 9:35 AM EDT Oxygen Saturation 99% 12/02/2018 9:35 AM EDT Inhaled Oxygen Concentration - - Weight 93.4 kg (205 lb 12.8 oz) 12/02/2018 9:35 AM EDT Height - - Body Mass Index 36.46 10/12/2018 9:15 AM EDT documented in this encounter Progress Notes * Abbi Roa APRN - 12/02/2018 9:45 AM EDT Thyroid Lobectomy Follow Up Subjective: Ms. Catie Alvares is a very pleasant 58 y.o. year old female who is 6 weeks s/p right thyroid lobectomy for solitary thyroid nodule. She is doing very well without complaints. She is not having issues with pain or difficulty swallowing. Exam: Most Recent Vitals: 12/02/18 0935 BP: 137/73 Pulse: 83 Resp: 16 Temp: 37.2 ??C (99 ??F) SpO2: 99% PainSc: 0 - No pain Healing anterior neck incision with underlying healing ridge. No hematoma or seroma. Voice appears normal. Pathology: Right lobe of thyroid, excision: ??- Multiple adenomatous nodules with focal fibrosis and hemorrhage. ??- One parathyroid gland with ?? no diagnostic abnormality recognized. Labs: Lab Results Component Value Date TSH 5.69 (H) 12/02/2018 Assessment and Plan: Ms. Catie Alvares is a very pleasant 58 y.o. year old female s/p right thyroid lobectomy who is doing very well post-operatively without evidence of complications. I discussed the pathology resultswith the patient and recommended no further treatment. TSH today was high, so she will require thyroid hormone supplementation. I have sent a prescription for levothyroxine 25 mcg to her pharmacy. She has a lab slip to recheck TSH in 8 weeks. She will follow up with Dr. Lee for further management. I discussed scar massage with vitamin E to aid in incisional appearance and discussed the importance of UV light protection on scar healing. Overall, she is doing very well post-operatively and I recommended follow up with us on an as needed basis hereafter. Abbi Roa APRN documented in this encounter Plan of Treatment Not on file documented as of this encounter Visit Diagnoses Diagnosis Thyroid nodule Nontoxic uninodular goiter documented in this encounter Care Teams Delicatessen Slicer Relationship Specialty Start Date End Date Nathalie Pratt APRN [address] [place] [address] PCP - General Family Medicine 07/16/18 07/02/22 documented as of this encounter
--- OUTSIDE RECORDS SUMMARY | 2023-08-31 13:52 | XMS_ITS | Encounter Summary ---
Author Organization [facility] Address [address] [place] [address] Care Team Providers Care Information Technology Program Manager Name Role Phone Unavailable Primary Care Provider Unavailabl e Encounter Details Date Type Department Care Team (Late st Contact Info) Description 09/24/2007 Before PRISM Converted Visit (Maple) [facility] - Maple conversion [address] [place] [address] Juan J Vaughn MD [address] [place] [phone] Social History Tobacco Use Types Packs/Day Years Used Date Smoking Tobacco: Never Assessed Sex and Gender Information Value Date Recorded Sex Assigned at Not on file Gender Identity Not on file Sexual Orientation Not on file documented as of this encounter Plan of Treatment Not on file documented as of this encounter Procedures Procedure Name Priority Date/Time Associated Diagnosis Comments SURGICAL PATHOLOGY Routine 09/24/2007 0:00 EDT documented in this encounter Results * SURGICAL PATHOLOGY (09/24/2007 0:00 EDT) Pathology Report: SURGICAL PATHOLOGY REPORT ? Reports generated via electronic interface contain original data; ? however they are lacking the format of the original report. ? Caution should be taken when reading/interpreti ng unformatted reports. ? Name: ? WAGONER, ARA S ? Accession #: ? [id number] ? : ? 1960 (Age: 47) ??F ? Collect Date: ? 09/24/2007 ? Location: ? [facility] ? Receive Date: ? 09/24/2007 ? Provider: JUAN J VAUGHN MD ? Copy to: ROSHNI W BESCH ADVANCED PRACTICE PROFESSIONAL ? Final Pathologic Diagnosis: ? Soft tissue and bone, right clavicle, distal excision: ? 1. ?Degenerative and reparative changes (osteoarthritis). ? 2. ? Cellular bone marrow with maturing trilineage hematopoiesis. ? Document reviewed and electronically signed by: ? Jeremi Martínez MD ? Report ??Date: 10/01/2007 10:57 ? By the signature above, the attending physician certifies that he/she has ? personally conducted a gross and/or microscopic examination of the described ? specimens and rendered or confirmed the above diagnosis. ? Specimen(s) Received: ? Distal clavicle right and bursa ??subacromial bursa ? Clinical History: ? DJD arthritis R distal clavicle with rotator cuff tendonitis ? Gross Description: ? Received in formalin labelled Wagoner and right distal clavicle are two portions of tissue measuring 2.0 x 1.0 x 0.5 cm and 2.2 x 1.5 x 1.0 cm. ??The ? smaller portion of tissue is slightly firm and phillip-brown with adherent lobulated adipose tissue. ??The larger tissue has a cut bony surface on one aspect, while ?? the remaining aspects are smooth, shiny and phillip-white tissues with minimal ? amounts of adherent lobulated yellow adipose tissue. ??The bony margin of this ?? tissue is black-inked. ??The main portion of bony tissue is bisected to reveal a phillip-pink and firm cut surface with a 0.1 to 0.2 cm white pseudocapsule. ??A ? portion of the bony tissue is submitted for decalcification as (A1) and the ? smaller softer portion of tissue is submitted as (A2). ??(Trey Garcia)/[facility] ? End of Report ? MITZI COLE 09/24/2007 09/24/2007 18: 14 EDT Juan J Vaughn MD PATHOLOGY ORDERABLE S MITZI COLE [address] [place] [address] documented in this encounter Visit Diagnoses Not on filedocumented in this encounter
--- OUTSIDE RECORDS SUMMARY | 2023-08-31 13:52 | XMS_ITS | Encounter Summary ---
[place] [address] Care Team Providers Care Election Watcher Name Role Phone Nathalie Pratt APRN Primary Care Provider [phone] Reason for Referral * Consultation (Routine) - Closed Specialty Diagnoses / Procedures Referred By Veena barrow Referred To Contact General Surgery Diagnoses Thyroid nodule Yelena Villa MD [facility] [place] [address] [facility] [address] [place] [address] Referral ID Status Reason Start Date Expiration Date V isits Requested Visits Authorized [id number] Closed Consult, Test & Treat 07/30/2018 07/30/2019 1 1 Encounter Details Date Type Department Care Team (Late st Contact Info) Description 07/30/2018 Telephone [place] [address] Yelena Villa MD [facility] [place] [address] Social History Tobacco Use Types Packs/Day Years Used Date Smoking Tobacco: Former Cigarettes Q uit: 1991 Smokeless Tobacco: Never Comments:lives with a smoker Sex and Gender Information Value Date Recorded Sex Assigned at Not on file Gender Identity Not on file Sexual Orientation Not on file documented as of this encounter Miscellaneous Notes * Telephone Encounter - Yelena Villa MD - 07/30/2018 2:27 PM EDT Contacted Randi to inform her that thyroid nodule FNA returned non-diagnostic. She will be scheduled to see Dr. Escobar given size of thyroid nodules and compressive symptoms. Should hemithyroidectomy be performed recommended 1 year follow up surveillance US of sub-centimeter solid, hypoechoic left lobe nodule. Yelena Villa PGY 4 Endocrinology Pager [phone] documented in this encounter Plan of Treatment Scheduled Referrals Name Type Priority Associated Diagnoses Orde r Schedule Referral to General Surgery Outpatient Referral Routine Thyroid nodule Ordered: 07/30/2018 documented as of this encounter Visit Diagnoses Diagnosis Thyroid nodule Nontoxic uninodular goiter documented in this encounter Care Teams Election Watcher Relationship Specialty Start Date End Date Nathalie Pratt, AGUEDA [address] [place] [address] PCP - General Family Medicine 07/16/18 07/02/22 documented as of this encounter
--- OUTSIDE RECORDS SUMMARY | 2023-08-31 13:52 | XMS_ITS | Encounter Summary ---
Author Organization [facility] Address [address] [place] [address] Care Team Providers Care Case Work Aide Name Role Phone Unavailable Primary Care Provider Unavailabl e Encounter Details Date Type Department Care Team (Late st Contact Info) Description 09/09/2007 Before PRISM Converted Visit (Maple) [facility] - Maple conversion [address] [place] [address] Rosalee Bryant, STOCK DRIER TENDER [address] [place] [phone] Social History Tobacco Use Types Packs/Day Years Used Date Smoking Tobacco: Never Assessed Sex and Gender Information Value Date Recorded Sex Assigned at Not on file Gender Identity Not on file Sexual Orientation Not on file documented as of this encounter Plan of Treatment Not on file documented as of this encounter Procedures Procedure Name Priority Date/Time Associated Diagnosis Comments CYTOPATHOLOGY Routine 09/09/2007 0:00 EDT documented in this encounter Results * CYTOPATHOLOGY (09/09/2007 0:00 EDT) Pathology Report: CYTOPATHOLOGY REPORT ? Reports generated via electronic interface contain original data; ? however they are lacking the format of the original report. ? Caution should be taken when reading/interpreti ng unformatted reports. ? Name: ? ARA WAGONER S ? Accession #: ? [id number] ? : ? 1960 (Age: 47) ??F ?Collect Date: ? 09/09/2007 ? Location: ? [facility] ? Receive Date: ? 09/13/2007 ? Provider: ?ROSALEE BRYANT STOCK DRIER TENDER ? Copy to: ? Specimen/Source: ?ThinPrep Pap Test, Cervix/Endocervix, processed on Cytyc ThinPrep Imaging System, with manual evaluation ? Last Menstrual Period: ? 7/16/08 ? Other: ? HPVA - HPV testing requested if ASC-US on the current ThinPrep Pap test. ? SPECIMEN ADEQUACY ? Satisfactory for Evaluation ? - transformation zone component absent ? - scant squamous epithelial component secondary to excessive blood ? GENERAL CATEGORIZATION ? Negative for Intraepithelial Lesion or Malignancy ? Document reviewed and electronically signed by: ? Dannie Hall, [place](ASCP) ? Report Date: ??09/15/2007 10:56 ? End of Report ? MITZI COLE 09/09/2007 09/13/2007 Rosalee Bryant NP PATHOLOGY ORDERABLES MITZI COLE [address] [place] [address] documented in this encounter Visit Diagnoses Not on filedocumented in this encounter
--- OUTSIDE RECORDS SUMMARY | 2023-08-31 13:52 | XMS_ITS | Encounter Summary ---
Author Organization [facility] Address [address] [place] [address] Care Team Providers Care Police Chief Deputy Name Role Phone Miller Umm DANIELS Primary Care Provider [phone] Encounter Details Date Type Department Care Team (Late st Contact Info) Description 11/19/[address] [facility]- PRISM [phone] Mila Melgar, AGUEDA [address] [place], [place] [id number] Social History Tobacco Use Types Packs/Day Years [...] Diagnosis Comments PAP TEST- RESULT ONLY Routine 11/19/2015 0:00 EDT documented in this encounter Results * PAP TEST- RESULT ONLY (11/19/2015 0:00 EDT) Pathology Report: CYTOPATHOLOGY REPORT Reports generated via electronic interface contain original data; however they are lacking the format of the original report. Caution should be taken when reading/interpreti ng unformatted reports. Name: ? ARA WAGONER ? Accession #: ? [id number] ? : ? 1960 (Age: 55) ??F ?Collect Date: ? 11/19/2015 ? Location: ? [facility] ? Receive Date: ? 11/20/2015 ? Provider: MILA MELGAR APRN Copy to: ? Final Report SPECIMEN ADEQUACY ? Satisfactory for Evaluation - transformation zone component present GENERAL CATEGORIZATION ? Negative for Intraepithelial Lesion or Malignancy ?? Specimen/Source: ??Pap Test, Cervix, ThinPrep Imaging System with manual evaluation Document reviewed and electronically signed by: ? VASQUEZ Fry(ASCP) ? Report ??Date: 11/21/2015 14:35 HPV with Pap Test ? Date Ordered: ? 11/21/2015 ? Status: ?? Signed Out ?Date Complete: ? 11/22/2015 ? By: ??System Interface ? Date Reported: ? 11/22/2015 ? Interpretation RESULT: Negative for HPV. No E6 or E7 mRNA is detected from HPV types 16,18,31,33,35, 39,45,51,52,56,58, 59,66, and 68 by scrap dealer mediated amplification. Comments Document reviewed and electronically signed by: ? System Interface ? Report date: 11/22/2015 By the signature above, the attending physician certifies that he/she has personally conducted a gross and/or microscopic examination of the described specimens and rendered or confirmed the above diagnosis. End of Report [facility] 11/19/2015 11/20/2015 Mila Melgar APRN PATHOLOGY ORDERABLES [facility] [address] [place] [address] documented in this encounter Visit Diagnoses Not on filedocumented in this encounter Care Teams Police Chief Deputy Relationship Specialty Start Date End Date Umm Miller NP PCP - General 01/06/14 07/20/22 documented as of this encounter
--- OUTSIDE RECORDS SUMMARY | 2023-08-31 13:52 | XMS_ITS | Encounter Summary ---
[place] [address] Care Team Providers Care Property Insurance Claims Examiner Name Role Phone Nathalie Pratt APRN Primary Care Provider [phone] Encounter Details Date Type Department Care Team (Late st Contact Info) Description 02/23/2019 External [place] [id number] Social History Tobacco Use Types Packs/Day Years [...] Procedure Name Priority Date/Time Associated Diagnosis Comments LAB SCAN Routine 02/17/2019 TSH Routine 02/17/2019 documented in this encounter Results * (ABNORMAL) TSH (02/17/2019) TSH 4.30(H) Comment:Range 0.36 - 3.74 Blood specimen (specimen) 02/17/2019 Historical Provider CHEMISTRY ORDERAB LES * Scan Doc: Lab (02/17/2019) Historical Provider MEDIA MGR SCAN EX T ORDR/RSLT documented in this encounter Visit Diagnoses Not on filedocumented in this encounter Care Teams Property Insurance Claims Examiner Relationship Specialty Start Date End Date Nathalie Pratt, TANK BUILDER HELPER [address] [place] [address] PCP - General Family Medicine 07/16/18 07/02/22 documented as of this encounter
--- OUTSIDE RECORDS SUMMARY | 2023-08-31 13:52 | XMS_ITS | Clinical Summary ---
Author Organization [facility] Address [facility] [place] [address] Care Team Providers Care Utility Operator Name Role Phone Loraine Rios APRN Primary Care Provider [phone] Allergies No known active allergies Medications Medication Sig Dispensed Refills Start Date End Date Status PROAIR HFA 90 mcg/actuation HFA Aerosol Inhaler inhale 2 puffs by mouth BEFORE EXERCISE if needed 0 04/28/2018 Active atorvastatin (LIPITOR) 20 mg Tablet take 1 tablet by mouth at bedtime 0 06/01/2018 Active buPROPion (WELLBUTRIN) 100 mg Tablet take 1 tablet by mouth twice a day 0 07/06/2018 Active montelukast (SINGULAIR) 10 mg Tablet take 1 tablet by mouth once daily if needed for asthma 0 06/01/2018 Active lisinopril (PRINIVIL;ZESTRIL) 10 mg Tablet take 1 tablet by mouth once daily 0 07/06/2018 Active MAGNESIUM GLYCINATE ORAL Take by mouth. Active inhalational spacing device Spacer by [facility].(Non-Drug; Combo Route) route. Active cholecalciferol, Vitamin D3, (VITAMIN D) 1,000 unit Capsule Take by mouth. Active lamoTRIgine (LAMICTAL) 25 mg Tablet 100 mg 2 times daily. 0 08/24/2018 Active zolpidem (AMBIEN) 5 mg Tablet take 1 to 2 tablets by mouth THE NIGHT OF THE SLEEP STUDY NEEDED 0 08/19/2018 Active levothyroxine (SYNTHROID) 25 mcg Tablet Take 1 tablet by mouth daily. 30 tablet 11 12/02/2018 Active Active Problems Problem Noted Date Diagnosed Date S/P partial thyroidectomy 12/03/2018 Social History Tobacco Use Types Packs/Day Years Used Date Smoking Tobacco: Former Cigarettes Q uit: 1991 Smokeless Tobacco: Never Comments:lives with a smoker Sex and Gender Information Value Date Recorded Sex Assigned at Not on file Gender Identity Not on file Sexual Orientation Not on file Last Filed Vital Signs Vital Sign Reading Time Taken Comments Blood Pressure 137/73 12/02/2018 9:35 AM EDT Pulse 83 12/02/2018 9:35 AM EDT Temperature 37.2 ??C (99 ??F) 12/02/2018 9:35 AM EDT Respiratory Rate 16 12/02/2018 9:35 AM EDT Oxygen Saturation 99% 12/02/2018 9:35 AM EDT Inhaled Oxygen Concentration - - Weight 93.4 kg (205 lb 12.8 oz) 12/02/2018 9:35 AM EDT Height 160 cm (5' 3) 10/12/2018 9:15 AM EDT Body Mass Index 36.46 10/12/2018 9:15 AM EDT Plan of Treatment Health Maintenance Due Date Last Done Comments CT Colonography 1960 Colonoscopy 1960 Colorectal Cancer Screening 1960 FIT DNA 1960 FIT 1960 Sigmoidoscopy (10 year) with FIT yearly 1960 Sigmoidoscopy 1960 HIV screen 1978 Hepatitis C Screening 1978 Tdap adult 07/12/1979 Tetanus vaccine 07/12/1979 HPV test 1990 PAP Smear 1990 Breast Cancer Share Decision Needed 2000 Breast Cancer screening 2000 Zoster vaccine (1 of 2) 2010 Advance Directive 07/12/2015 Covid-19 Vaccine (1 - 2022-24 season) 2022 Influenza (Flu) vaccine (1 o f 1 - Influenza standard series) 10/11/2023 Care Teams Utility Operator Relationship Specialty Start Date End Date Loraine Rios APRN [facility] [address] [place] [address] PCP - General Family Medicine 07/03/22
--- OUTSIDE RECORDS SUMMARY | 2023-08-31 13:52 | XMS_ITS | Encounter Summary ---
Author Organization [facility] [place] [address] Care Team Providers Care Licensed Psychologist Name Role Phone Nathalie Pratt APRN Primary Care Provider Encounter Details Date Type Department Care Team (Late st Contact Info) Description 10/21/2018 Telephone [place] [phone] Krystina Escobar MD [facility] [place] [place] [address] Social History Tobacco Use Types Packs/Day Years Used Date Smoking Tobacco: Former Cigarettes Q uit: 1991 Smokeless Tobacco: Never Comments:lives with a smoker Sex and Gender Information Value Date Recorded Sex Assigned at Not on file Gender Identity Not on file Sexual Orientation Not on file documented as of this encounter Miscellaneous Notes * Telephone Encounter - Krystina Escobar MD - 10/21/2018 9:19 AM EDT I called Ms. Catie Alvares today to discuss the results of her pathology. Specifically, this demonstrated Right lobe of thyroid, excision: ??- Multiple adenomatous nodules with focal fibrosis and hemorrhage. ??- One parathyroid gland with ?? no diagnostic abnormality recognized. She is doing well. Her voice sounds normal. She is not complaining of perioral numbness/tingling, numbness/tingling in the hands, or muscle spasms. She will taper off her calcium supplementation. I answered her questions, and we will discuss further at her regularly-scheduled postoperative follow up appointment. documented in this encounter Plan of Treatment Not on file documented as of this encounter Visit Diagnoses Not on filedocumented in this encounter Care Teams Licensed Psychologist Relationship Specialty Start Date End Date Nathalie Pratt, BURR MILL OPERATOR [address] [place] [address] PCP - General Family Medicine 07/16/18 07/02/22 documented as of this encounter
--- OUTSIDE RECORDS SUMMARY | 2023-08-31 13:52 | XMS_ITS | Encounter Summary ---
Author Organization [facility] Address [address] [place] [address] Care Team Providers Care Forming Roll Operator Name Role Phone Unavailable Primary Care Provider Unavailabl e Encounter Details Date Type Department Care Team (Late st Contact Info) Description 10/28/2002 Results Only [facility] - Maple conversion [address] [place] [address] Rosalee Bryant, NOXIOUS WEEDS AND PEST INSPECTOR [address] [place] [address],[address] [phone] Social History Tobacco Use Types [...] Date/Time Associated Diagnosis Comments SURGICAL PATHOLOGY Routine 10/28/2002 0:00 EDT documented in this encounter Results * SURGICAL PATHOLOGY (10/28/2002 0:00 EDT) Pathology Report: SURGICAL PATHOLOGY REPORT Reports generated via electronic interface contain original data; however they are lacking the format of the original report. Caution should be taken when reading/interpreting unformatted reports. Name: ? ARA WAGONER ? Accession #: ? [id number] ? : ? 1960 (Age: 42) ??F ? Collect Date: ? 10/28/2002 ? Location: ? [facility] ? Receive Date: ? 10/31/2002 ? Provider: ROSALEE BRYANT NP Copy to: ANA JOLLY MD ? Final Pathologic Diagnosis: ? Endometrium, biopsy: - Early secretory endometrium. Comment: ? This case has been presented at the intradepartmental consultation conference on 11/01/02. ??(Dr. Chandler)/ariel Document reviewed and electronically signed by: Johanna Chandler MD Report ??Date: 11/01/2002 15:43 By the signature above, the attending physician certifies that he/she has personally conducted a gross and/or microscopic examination of the described specimens and rendered or confirmed the above diagnosis. Specimen(s) Received: ? Endometrial biopsy Clinical History: ? Abnormal vaginal bleeding Gross Description: ? Received in formalin labelled Wagoner and endometrial biopsy is a 1.8 x 1.2 x 0.2 cm aggregate of phillip, soft tissue fragments admixed with blood clot. Entirely submitted in one cassette. ??(Ulisses Sampson/nerissa End of Report MITZI COLE 10/28/2002 10/31/2002 15: 12 EDT Rosalee Bryant NP PATHOLOGY ORDERABLES [facility] [address] [place] [address] documented in this encounter Visit Diagnoses Not on filedocumented in this encounter
--- OUTSIDE RECORDS SUMMARY | 2023-08-31 13:52 | XMS_ITS | Encounter Summary ---
[place] [address] Care Team Providers Care Steel Hanger Name Role Phone Nathalie Pratt APRN Primary Care Provider Reason for Visit * Reason Comments Establish Care * Consultation (Routine) - Closed Specialty Diagnoses / Procedures Referred By Veena barrow Referred To Contact General Surgery Diagnoses Thyroid nodule Yelena Villa MD [facility] [place] [address] [facility] [place] [address] [place] [address] Referral ID Status Reason Start Date Expiration Date V isits Requested Visits Authorized [id number] Closed Consult, Test & Treat 07/30/2018 07/30/2019 1 1 Encounter Details Date Type Department Care Team (Late st Contact Info) Description 08/26/2018 1:45 PM EDT Office [place] [address] Krystina Escobar MD [facility] [place] [address] Thyroid nodule Social History Tobacco [...] Sign Reading Time Taken Comments Blood Pressure 142/75 08/26/2018 1:34 PM EDT Pulse 88 08/26/2018 1:34 PM EDT Temperature - - Respiratory Rate 18 08/26/2018 1:34 PM EDT Oxygen Saturation 99% 08/26/2018 1:34 PM EDT Inhaled Oxygen Concentration - - Weight 93 kg (205 lb) 08/26/2018 1:34 PM EDT Height 160 cm (5' 3) 08/26/2018 1:34 PM EDT Body Mass Index 36.31 08/26/2018 1:34 PM EDT documented in this encounter Progress Notes * Krystina Escobar MD - 08/26/2018 1:45 PM EDT Endocrine Surgery Initial Consultation HPI: Ms. Catie Alvares is a 58 y.o. year old female referred by Dr. Villa who presents for evaluation of a right-sided thyroid nodule. This was initially noted by the patient back in June. At the time, she reported compressive symptoms including dysphagia and globus sensation, but these have improved since she had the FNA with endocrinology and now she reports only a little bit of a sore thro at when she swallows. She denies symptoms of hyperthyroidism or hypothyroidism, and recent thyroid function tests have been normal. There is not personal history of radiation exposure, and the patient has not had prior anterior neck surgery. There is not family history of endocrine tumors or malignancy. Imaging studies to date include thyroid [facility] occupying most of the right lobe measuring 4.0 x 2.4 x3.1cm. There is not a reported substernal component. Fine needle aspiration biopsy has been performed by endocrinology and cytology was nondiagnostic ([place] 1). Molecular testing was not sent. She is now referred to me for consideration of surgical management of her thyroid disease. Past Medical History: Diagnosis Date ??? ADHD ??? Asthma ??? Depression Possibly bipolar ??? HLD (hyperlipidemia) ??? HTN (hypertension) Past Surgical History: Procedure Laterality Date ??? CHOLECYSTECTOMY, LAPAROSCOPIC ??? KNEE CARTILAGE SURGERY Left ??? ROTATOR CUFF REPAIR Right Current Outpatient Medications on File Prior to Visit Medication Sig Dispense Refill ??? lamoTRIgine (LAMICTAL) 25 mg Tablet take 1 tablet by mouth once daily for 2 weeks then 2 tablets once daily 0 ??? zolpidem (AMBIEN) 5 mg Tablet take 1 to 2 tablets by mouth THE NIGHT OF THE SLEEP STUDY NEEDED 0 ??? PROAIR HFA 90 mcg/actuation HFA Aerosol [...] ??? inhalational spacing device Spacer by [facility].(Non-Drug; Combo Route) route. ??? cholecalciferol, Vitamin D3, (VITAMIN D) 1,000 unit Capsule Take by mouth. No current facility-administered medications on file prior to visit. No Known Allergies Family History: No thyroid cancer. No pituitary or adrenal tumors. Sister had pancreatic cancer. Noparathyroid disease. Social History: , two daughters, one of whom lives at home. On disability, worked for a longtime at a [employer]. Remote smoking history, <10 pack years. Very occasional EtOH. She does not do any professional public speaking or singing. Review of Systems - 10 of 14 systems were reviewed with the patient and were negative except as perHPI Most Recent Vitals: 08/26/18 1334 BP: 142/75 Pulse: 88 Resp: 18 SpO2: 99% Body mass index is 36.31 kg/m??. Physical Exam: General: well-appearing, NAD Neuro: Alert and oriented x 3. Cranial nerves II-XII grossly intact. Eyes: no lid lag or proptosis ENT: Moist mucus membranes. Trachea midline Thyroid: palpable 2-3cm nodule on right. Mobile with swallowing. Lymph: No palpable cervical lymphadenopathy CV: RRR Respiratory: Normal respiratory effort. Lungs clear bilaterally. Extremities well-perfused without edema Skin: warm and dry. No rashes Psych: appropriate affect Labs: TSH 0.78 (07/06/18) Imaging: Thyroid, Parathyroid and Cervical Ultrasound I performed a thyroid, parathyroid and cervical ultrasound at the time of the clinic visit today using the 12 mHz linear ultrasound transducer. The thyroid, parathyroid and central and bilateral lateral neck lymph node basins were evaluated. Thyroid Isthmus: Thickness: 0.11 cm Nodules: none Right lobe: Lobe: 5.42 x 1.32 x 1.63 cm Nodules: There is a predominantly cystic nodule measuring 2.05 x 1.03 x1.23 cm. It has well-definedborders. There are not microcalcifications. There is no/low vascularity Left lobe: Lobe: 4.93 x 1.24 x 1.18 cm Nodules: There are at least two spongiform-type nodules measuring 9mm and 1cm in largest dimension. Cervical lymph nodes Central neck: Normal ultrasonographic appearing lymph nodes. Right lateral neck: Normal ultrasonographic appearing lymph nodes. Left lateral neck: In level 2/3, there is a prominent node measuring 1.6 x 0.4 x 1.1cm without an obvious hilum. A/P: Ms. Catie Alvares is a 58 y.o. year old female with a right-sided thyroid nodule and FNA demonstrating nondiagnostic ([place] 1) cytology. The nodule is significantly smaller [...] she prefers to proceed to surgery. We discussedthe fact that should the final pathology report contain thyroid cancer, she may require a completion thyroidectomy. We also discussed the fact that about 25% of patients will require some thyroid hormone supplementation after hemithyroidectomy, and we will determine whether she needs this by checking a TSH 6 weeks post- operatively. I discussed the risks of thyroid surgery including, but not limited to, laryngeal nerve injury resulting in voice changes or hoarseness, low calcium due to damage orremoval of one or more parathyroid glands, bleeding which may require return to the operating room,post-operative infection and other complications related to anesthesia. The patient's questions were answered, and consent was obtained today. We will schedule surgery for the next mutually convenient date. CESQIP Data Body mass index is 36.31 kg/m??. Race: Patient Ethnicity & Race Ethnic Group Patient Race Not nor White Prior neck irradiation: no Prior anterior neck surgery: no Pre-operative laryngoscopy: no Anti-coagulation meds (aspirin, warfarin, clopidogrel, heparin, oral thrombin or factor Xa inhibitors): no Substernal component: no Symptoms of compression: yes FNA: yes FNA Classification: [place] 1 documented in this encounter Plan of Treatment Not on file documented as of this encounter Visit Diagnoses Diagnosis Thyroid nodule Nontoxic uninodular goiter documented in this encounter Care Teams Steel Hanger Relationship Specialty Start Date End Date Nathalie Pratt, AGUEDA [address] [place] [address] PCP - General Family Medicine 07/16/18 07/02/22 documented as of this encounter
--- OUTSIDE RECORDS SUMMARY | 2023-08-31 13:52 | XMS_ITS | Clinical Summary ---
Author Organization [facility] Address [address] [place] [address] Care Team Providers Care Health Sciences Department Chair Name Role Phone Unavailable Primary Care Provider Unavailabl e Social History Tobacco Use Types Packs/Day Years Used Date Smoking Tobacco: Never Assessed Sex and Gender Information Value Date Recorded Sex Assigned at Not on file Gender Identity Not on file Sexual Orientation Not on file Plan of Treatment Health Maintenance Due Date Last Done Comments Hepatitis C Screen 1960 RSV Immunization ( o r 60+ Years) (1 - 1-dose 60+ series) 2020 COVID-19 Vaccine (24 season) 2022
--- OUTSIDE RECORDS SUMMARY | 2023-08-31 13:52 | XMS_ITS | Encounter Summary ---
Author Organization [facility] Address [address] [place] [address] Care Team Providers Care Assurance Senior Manager Insurance Name Role Phone Unavailable Primary Care Provider Unavailabl e Encounter Details Date Type Department Care Team (Late st Contact Info) Description 11/25/2010 Results Only [facility] Laboratory Services - [facility] [address] [place] [address] [place] Nguyen MD [address] [place] [id number] Social History Tobacco Use Types Packs/Day Years Used Date Smoking Tobacco: Never Assessed Sex and Gender Information Value Date Recorded Sex Assigned at Not on file Gender Identity Not on file Sexual Orientation Not on file documented as of this encounter Plan of Treatment Not on file documented as of this encounter Procedures Procedure Name Priority Date/Time Associated Diagnosis Comments SURGICAL PATHOLOGY Routine 11/25/2010 0:00 EDT documented in this encounter Results * SURGICAL PATHOLOGY (11/25/2010 0:00 EDT) Pathology Report: SURGICAL PATHOLOGY REPORT Reports generated via electronic interface contain original data; however they are lacking the format of the original report. Caution should be taken when reading/interpreti ng unformatted reports. Name: ? ARA WAGONER ? Accession #: ? [id number] ? : ? 1960 (Age: 50) ??F ? Collect Date: ? 11/25/2010 ? Location: ? [facility] ? Receive Date: ? 11/25/2010 ? Provider: CLEVELAND NGUYEN MD Copy to: ROSHNI SHELLEY LANDSCAPE PHOTOGRAPHER ? Final Pathologic Diagnosis: A. ?Colon, cecum, biopsies: 1. ?Fragments of tubular adenoma. B. ?Esophagus, 36 cm, biopsies: 1. ?Gastroesophageal junctional mucosa with histologic features of reflux esophagitis. ? - Negative for intestinal metaplasia/Negativ e for dysplasia. ?? 2. ?Gastric body mucosa with no specific pathologic features. ?? Document reviewed and electronically signed by: NIKKY RUSHING MD Report ??Date: 11/27/2010 17:43 By the signature above, the attending physician certifies that he/she has personally conducted a gross and/or microscopic examination of the described specimens and rendered or confirmed the above diagnosis. Specimen(s) Received: A. ?Cecum bx B. ? Esoph 36 cm bx Clinical History: ? Hx of GERD, colorectal screening Gross Description: ? Received in formalin labelled Wagoner, Ara and cecum bx are two light phillip biopsies measuring 0.2 x 0.2 x 0.2 cm and 0.3 x 0.2 x 0.2 cm. ??The specimens are submitted intact as (A). Received in formalin labelled Wagoner, Ara and esoph 36 cm bx are four light phillip biopsies which vary in size from 0.3 x 0.3 x 0.3 cm up to 0.6 x 0.3 x 0.2 cm. ??The specimens are submitted intact as (B1) and (B2) (Kimberly Cohn)/mpl ?? End of Report [facility] 11/25/2010 11/25/2010 15: 56 EDT [place] Nguyen MD PATHOLOGY ORDERABLE S Performing Organization Address City/State/[facility] Co de Phone Number [facility] [address] [place] [address] documented in this encounter Visit Diagnoses Not on filedocumented in this encounter
--- OUTSIDE RECORDS SUMMARY | 2023-08-31 13:52 | XMS_ITS | Encounter Summary ---
Author Organization [facility] [place] [address] Care Team Providers Care Division Chief Name Role Phone Nathalie Pratt APRN Primary Care Provider Encounter Details Date Type Department Care Team (Late st Contact Info) Description 10/12/2018 10:34 AM EDT - 10/12/2018 1:02 PM EDT Surgery [place] [address] Krystnia Becker MD [facility] [address] THYROIDECTOMY, LOBECTOMY, TOTAL, UNILATERAL (WRVU 11.19) Social History Tobacco Use Types Packs/Day Years Used Date Smoking Tobacco: Former Cigarettes Q uit: 1991 Smokeless Tobacco: Never Comments:lives with a smoker Sex and Gender Information Value Date Recorded Sex Assigned at Not on file Gender Identity Not on file Sexual Orientation Not on file documented as of this encounter Last Filed Vital Signs Vital Sign Reading Time Taken Comments Blood Pressure 154/74 10/12/2018 1:00 PM EDT Pulse 82 10/12/2018 9:15 AM EDT Temperature 36.1 ??C (97 ??F) 10/12/2018 12:12 PM EDT Respiratory Rate 18 10/12/2018 12:45 PM EDT Oxygen Saturation 100% 10/12/2018 1:00 PM EDT Inhaled Oxygen Concentration - - [...] Take NSAIDS or Tylenol every 6 hours [id number] for the first 3-5 days following surgery [...] Becker in approximately 6 weeks. Please call [phone] to confirm the date and time of your appointment if you do not hear from us in the next 2 weeks or if you need to reschedule. Call Doctor for: Call if you have trouble talking or breathing (call [phone] if this is severe) Call if you [...] days after surgery. Phone number for questions: [phone] before 5 PM on weekdays [phone] after 5 PM and on weekends/holidays. Ask for the general surgery resident front end wheel loader operator. documented in this encounter Medications at Time [...] by mouth. inhalational spacing device Spacer by [facility].(Non-Drug; Combo Route) route. cholecalciferol, Vitamin D3, (VITAMIN [...] Becker MD - 10/12/2018 11:49 AM EDT [facility] Operative Note Patient Name: Catie Alvares : [id number] MR#: [id number] Case Date: 10/12/2018 Surgeon: Surgeon(s) and Role: [...] right-sided thyroid nodule and FNA demonstrating nondiagnostic ([place] 1) cytology. The nodule is significantly smaller [...] anesthesia was achieved by anesthesiology with the Inside Secure[employer] recurrent laryngeal nerve monitoring system. A natural [...] Operative Note Patient Name: Catie Alvares : [id number] MR#: [id number] Case Date: 10/12/2018 Surgeon: Surgeon(s) and Role: [...] 11:38 AM EDT Needle Electromyography, Larynx Global (08337) 10/12/2018 10:32 AM EDT THYROID NODULE Total Thyroid Lobectomy Unilateral W/Wo Isthmusectomy (87243) 10/12/2018 10:32 AM EDT THYROID NODULE documented in this encounter Results * (ABNORMAL) TSH (12/02/2018 8:53 AM EDT) TSH 5.69(H) 0.27 - 4.20 mcIU/mL [facility] Blood specimen (specimen) 12/02/2018 8:53 AM EDT 12/02/2018 9:00 AM EDT Narrative Resulting Agency Comment Spec In Lab Krystina Becker MD CHEMISTRY ORDERAB LES [facility] [place] [address] * Surgical Pathology Report (10/12/2018 11:38 AM EDT) Surgical Pathology Report [id number] ? Location: [facility]; [facility]; A The signing pathologist has (i) examined the relevant preparation(s) for the specimen(s) and (ii) rendered or confirmed the diagnosis(es). . ?Surgical Pathology DIAGNOSIS Right lobe of thyroid, excision: - Multiple adenomatous nodules with focal fibrosis and hemorrhage. - One parathyroid gland with ?? no diagnostic abnormality recognized. Electronically signed by: ??MD Cl, Samir Narvaez Verified: ??10/19/2018 ?Pathologist Performed at: ??-[facility] Dept. of Pathology, [place], [place] CLINICAL INFORMATION Specimen Submitted: A - [...] sing: Serially sectioned from superior to inferior Digital Media Sales Consultant sections in 10 cassettes labeled A1-A10. ??AJ [facility] 10/12/2018 11:3 8 AM EDT Krystina Becker MD PATHOLOGY/CYTOLOG Y ORDERABLES Performing Organization Address [facility] Co [place] [address] * Specimen to Pathology (10/12/2018 11:38 AM EDT) AP Specimen 10/12/2018 11:3 8 AM EDT 10/12/2018 11:38 AM EDT Narrative [facility] - 10/12/2018 11:38 AM EDT Specimen requisition ordered. ??Separate Pathology report to follow Krystina Becker MD PATHOLOGY/CYTOLOG Y ORDERABLES Performing Organization Address [facility] [place] [address] documented in this encounter Visit Diagnoses Not [...] Given 10/12/2018 9:47 AM EDT 1,000 mg BUpivacaine-EPINEPHrine 0.25 %-1:200,000 injection ONCE PRN, Starting on Thu10/12/18 at 1056, Until Tu10/12/18 at 1721, Intra-Operative (Intra-Procedure), Routine Given 10/12/2018 10:56 AM EDT 10 mLs 19- Surgical Site HYDROmorphone (DILAUDID) injection 0.2-0.4 mg 0.2-0.4 mg, Intravenous, EVERY 5 MIN PRN, Starting on e 10/12/18 at 1219, Until Thu10/12/18 at 1520, Pain, Give 0.2 mg every [...] at 100 mL/hr, Intravenous, CONTINUOUS, Starting on e 10/12/18 at 0945, Until Thu10/12/18 at 1520, Day of Surgery (Day of Procedure) New Bag 10/12/2018 9:48 AM EDT 1,000 mLs 100 mL/hr ondansetron (ZOFRAN) injection 4 mg 4 mg, Intravenous, EVERY 30 MIN PRN, Starting on Thu10/12/18 at 1219, Until Thu10/12/18 at 1520, Nausea, May repeat 4 mg [...] PRN, Starting on Thu10/12/18 at 1219, Until Thu10/12/18 at 1520, Pain, Give 0.2 mg every [...] Routine 1234 (Given - Provid er: Rubia Cole RN)1247 (Given - Provider: Rubia Cole RN) ondansetron (ZOFRAN) injection 4 mg (CANCELED) 4 mg, Intravenous, EVERY 30 MIN PRN, Starting on Thu10/12/18 at 1219, Until 10/12/18 at 1520, Nausea, May repeat 4 mg once in 30 minutes. If multiple antiemetics ordered, use ondansetron first and if ineffective use prochlorperazine second and if ineffective use promethazine, PACU Recovery 1223 (Given - Provid er: Rubia Cole RN) documented in this encounter Care Teams Division Chief Relationship Specialty Start Date End Date Nathalie Pratt, EDITOR NEWS [address] [place] [address] PCP - General Family Medicine 07/16/18 07/02/22 documented as of this encounter
--- OUTSIDE RECORDS SUMMARY | 2023-08-31 13:52 | XMS_ITS | Encounter Summary ---
Author Organization [facility] Address [address] [place] [address] Care Team Providers Care Executive Sales Assistant Name Role Phone Rosalee Bryant STATISTICIAN THEORETICAL Primary Care Provider [phone] Encounter Details Date Type Department Care Team (Late st Contact Info) Description 01/02/2014 Results Only [facility] Laboratory Services - [facility] ([facility] [address] [place] [address] [place] Nguyen MD [address] [place] [address] Social History Tobacco Use Types Packs/Day Years Used Date Smoking Tobacco: Never Assessed Sex and Gender Information Value Date Recorded Sex Assigned at Not on file Gender Identity Not on file Sexual Orientation Not on file documented as of this encounter Plan of Treatment Not on file documented as of this encounter Procedures Procedure Name Priority Date/Time Associated Diagnosis Comments SURGICAL PATHOLOGY Routine 01/02/2014 20 :08 EST documented in this encounter Results * SURGICAL PATHOLOGY (01/02/2014 20:08 EST) Pathology Report: SURGICAL PATHOLOGY REPORT Reports generated via electronic interface contain original data; however they are lacking the format of the original report. Caution should be taken when reading/interpret ing unformatted reports. Name: ? ARA WAGONER ? Accession #: ? [id number] ? : ? 1960 (Age: 53) ??F ? Collect Date: ? 01/02/2014 ? Location: ? [facility] ? Receive Date: ? 01/02/2014 ? Provider: CLEVELAND NGUYEN MD Copy to: RICHIE CHANCE STATISTICIAN THEORETICAL ? Final Pathologic Diagnosis: GALLBLADDER, CHOLECYSTECTOMY: - ??Chronic cholecystitis with cholelithiasis. ?? - ??Papillary cholesterolosis. Document reviewed and electronically signed by: NIKKY RUSHING MD Report ??Date: 01/06/2014 08:02 By the signature above, the attending physician certifies that he/she has personally conducted a gross and/or microscopic examination of the described specimens and rendered or confirmed the above diagnosis. Specimen(s) Received: Gallbladder Clinical History: Biliary colic Gross Description: ? Received in formalin labelled with proper patient identification (initials P., D.) and gallbladder is an intact gallbladder (9.0 x 2.5 x 2.1 cm) with an attached segment of cystic duct (0.8 cm in length x 0.5 cm in diameter). ? The serosa is blue-bazan and focally white. The mucosa is green and velvety with yellow flecks and the wall is 0.2 cm in thickness. The cystic duct lumen is patent. The cystic duct margin is inked black. A single 1.1 cm in greatest dimension brown cholelith is present. ? Two contact representative sections and the inked en face cystic duct margin are submitted in block 1. Dr. Garcia 01/03/2014 02:52 PM End of Report [facility] 01/02/2014 20:0 8 EST 01/02/2014 20:08 EST [place] Nguyen MD PATHOLOGY ORDERABLE S [facility] [address] [place] [address] documented in this encounter Visit Diagnoses Not on filedocumented in this encounter Care Teams Executive Sales Assistant Relationship Specialty Start Date End Date Rosalee Bryant, STATISTICIAN THEORETICAL [address] [place] [phone] PCP - General 11/27/10 01/05/14 documented as of this encounter
--- OUTSIDE RECORDS SUMMARY | 2023-08-31 13:52 | XMS_ITS | Referral Summary ---
Author Organization [facility] Address [address] [place] [address] Care Team Providers Care Technical Laboratory Asst Name Role Phone Unavailable Primary Care Provider Unavailabl e Social History Tobacco Use Types Packs/Day Years Used Date Smoking Tobacco: Never Assessed Sex and Gender Information Value Date Recorded Sex Assigned at Not on file Gender Identity Not on file Sexual Orientation Not on file Plan of Treatment Not on file
[2023-08-31 18:12] LABS: Hemoglobin A1C 5.7 % (<5.7)
[2023-08-31 18:34] LABS: Anion Gap 12.5 mmol/L (3-11); BUN 21 mg/dL (7-18); CO2 24.5 mmol/L (21.0-32.0); CREATININE 1.7 mg/dL (0.55-1.02); Calcium 9.4 mg/dL (8.5-10.1); Chloride 105 mmol/L (98-107); Estimated GFR 33.49 (mL/min/1.73m2); Glucose 143 mg/dL (74-106); Potassium 3.8 mmol/L (3.5-5.1); Sodium 142 mmol/L (136-145)
== END 2023-08-31 13:43 | disposition home or self-care (01) ==
LOC: NCHCN 13:42
PROVIDERS: PCP Nurse Practitioner Family; Visit Provider Nurse Practitioner Family
DX: N18.31 Chronic kidney disease, stage 3a (principal); R73.03 Prediabetes
CPT/HCPCS: 80048; 83036

== ENCOUNTER 2024-01-28 01:25 | Outpatient (CLI) | payer MEDICARE, SELFPAY ==
--- NOTE | 2024-01-28 15:23 | DI.MAMMO_ITS ---
Exam(s) MAMMO SCREENING EXAM: MAMMO SCREENING CLINICAL HISTORY: SCREENING MAMMO Z12.31 TECHNIQUE: Bilateral full field digital CC and MLO mammographic images were obtained with 3D tomosyn thesis and utilizing computer aided detection (CAD). COMPARISON: Available for comparison. FINDINGS: Masses/Architectural Distortion: There are stable bilateral breast nodules. No new nodules are seen. No areas of architectural distortion are present. Microcalcifications: No suspicious pleomorphic-type are seen. Skin Thickening/Nipple Retraction: None. IMPRESSION: 1. No significant interval change with no specific features of malignancy noted. 2. Unless there is more urgent need, screening mammography is recommended, as per [place] [employer] guidelines. BI-RADS Category 2 - Benign Findings Breast Density - Category B - Scattered areas of fibroglandular density Breast density category C or D implies that the patient has dense breast tissue. Dense breast tissue is very common and is not abnormal but dense breast tissue can make it harder to find cancer on a ma mmogram. Also, dense breast tissue may increase their breast cancer risk. This information about the result of the mammogram report was provided to the patient to raise their awareness. Use this report when you speak with the patient about their risks for breast cancer, which includes their family hist ory. At that time, you may recommend for more screening tests (Ultrasound or MRI) as they might be us eful based on their risk. A negative radiographic report should not delay biopsy if a dominant or clinically suspicious mass is present. Up to ten percent of cancers are not identified on mammography. A negative report may reinforce clinical impression. Adenosis and dense breasts may obscure an underlying neoplasm. False positive reports average 6 to 10%. Patient will receive a letter notifying them of these results.
== END 2024-01-28 01:45 ==
LOC: DI 01:25
PROVIDERS: PCP Nurse Practitioner Family; Visit Provider Nurse Practitioner Family
DX: Z12.31 Encounter for screening mammogram for malignant neoplasm of breast (principal); R92.323 Mammographic fibroglandular density, bilateral breasts; D24.1 Benign neoplasm of right breast; D24.2 Benign neoplasm of left breast
CPT/HCPCS: 77063; 77067

== ENCOUNTER 2024-02-12 15:46 | Outpatient (REF) | payer MEDICARE, SELFPAY ==
--- NOTE | 2024-02-12 14:30 | PAPFT_PTH ---
PATIENT: Catie Alvares LOC: [facility] U#:[id number] AGE/SX: 63/F ROOM: RE02/12/[address]: Judie Barakat DO : 1960 BED: DIS: 02/12/2024 SPEC #: [id number] RECD: 02/12/24 17:25 STATUS: KALYN REQ #: [id number] BECK: 02/12/24 14:[address]: Judie Barakat DEPT: [facility] Cytology RECD BY: Aleta Bazan ENTERED: 02/12/24 17:26 SP TYPE: PAPFT OTHR DR: CHEVY BAL NP Tissues: 1 - CX/ENDOCX FOR PAP SMEARS Procedures: PAP THIN PREP/UVM Screening HPV DNA PROBE Comments: [id number] (HPV 16 & 18/45)
== END 2024-02-12 15:47 | disposition home or self-care (01) ==
LOC: LBN 15:46
PROVIDERS: PCP Nurse Practitioner Family; Visit Provider Obstetrics & Gynecology
DX: Z12.4 Encounter for screening for malignant neoplasm of cervix (principal); B37.2 Candidiasis of skin and nail
CPT/HCPCS: 88142; 87624

== ENCOUNTER 2024-02-25 11:01 | Emergency (ER) | payer MEDICARE, SELFPAY ==
--- NOTE | 2024-02-25 11:00 | RT.EKG_ITS ---
APPROVED REPORT Exam: Resting ECG Reason for Exam: Dizzyness Patient Location: E HR:81 bpm ECG Measurements Heart Rate 81 AXIS AL 170 P 61 QRSd 87 QRS 42 QT 373 T 53 QTc 432 Conclusion Sinus rhythm...normal P axis, V-rate 60- 99
[2024-02-25 11:11] VITALS: BP 147/65; PULSE 82; RESP 20; TEMP 37; O2SAT 96
--- NOTE | 2024-02-25 11:21 | ED.GENADUL_ITS ---
Discharge Plan Discharge Details Chief Complaint: Dizzy/Sync Primary Care Provider: CHEVY BAL ED Provider: Elton Glover Home Meds and New Rx's Prescriptions: No Action cholecalciferol (vitamin D3) 1,000 unit capsule 1,000 unit PO DAILY nystatin 100,000 unit/gram cream 1 applic topical BID Qty: 30 2RF ondansetron 8 mg tablet,disintegrating 8 mg PO Q8H PRN mecobalamin (vitamin B12) 2,500 mcg tablet,chewable 2,500 mcg PO BID Patient Comments: 09/22/22- pt reports takes two 2500 mcg tabs daily lamotrigine 100 mg tablet 200 mg PO BID cetirizine 10 mg tablet 10 mg PO DAILY PRN gabapentin 100 mg capsule See Rx Instructions PO QHS PRN Rx Instructions: 1-3 capsules orally every day at bedtime PRN; levothyroxine 50 mcg tablet 50 mcg PO DAILY clonidine HCl 0.1 mg tablet 0.2 mg PO QHS Patient Comments: 0.2 mg at night and 0.1 in the morning. diclofenac sodium 1 % gel 2 g topical TID PRN Rx Instructions: apply to single elbow, wrist or hand; for hand includes palm/fingers/back of hand celecoxib [Celebrex] 100 mg capsule 100 mg PO DAILY PRN famotidine 20 mg tablet 20 mg PO BID atorvastatin 20 mg tablet 20 mg PO QHS acetaminophen [Acetaminophen Extra Strength] 500 MG tablet 1,000 mg PO PRN PRN (Reason: Pain) albuterol sulfate [Ventolin HFA] 8 GM HFA aerosol inhaler 2 puff Inhalation PRN PRN (Reason: Shortness Of Breath) montelukast [Singulair] 10 MG tablet 10 mg PO DAILY sumatriptan succinate [Imitrex] 50 MG tablet 50 mg PO PRN PRN lisinopril 10 MG tablet 10 mg PO DAILY bupropion HCl [Wellbutrin] 100 MG tablet 100 mg PO BID HPI General Date/Time Provider Initiated Documentation: 02/25/24 11:20 . HPI Narrative: 63 year-old female presents to ED today by EMS with a chief complaint of 2 days onset of coordination difficulties, some minor falls onto soft surfaces at home- recently received the shingles vaccine, and just before that had her lamotrigine increased and clonidine changed from QD to BID, as well as stopped seroquel. Quality described as dizziness today with balance issues, states she is shifting to the right when walking, some confusion, no radiation to vision changes, chest pain, denies room spinning sensation, denies recent URI, denies nausea and vomiting denies pulsatile tinnitus. Severity is described as moderate. Palliating factors include nothing specific attempted. Provoking factors include nothing specific. Patient not anticoagulated. Related Data Home Medications ?Medication ?Instructions ?Recorded ?Confirmed acetaminophen 500 mg tablet 1,000 mg PO PRN PRN Pain 04/12/12 02/25/24 (Acetaminophen Extra Strength) albuterol sulfate 90 mcg/actuation 2 puff inhalation PRN PRN 04/12/12 02/25/24 aerosol inhaler (Ventolin HFA) Shortness Of Breath montelukast 10 mg tablet 10 mg PO DAILY 11/15/13 02/25/24 (Singulair) lisinopril 10 mg tablet 10 mg PO DAILY 12/30/13 02/25/24 sumatriptan succinate 50 mg tablet 50 mg PO PRN PRN 12/30/13 02/25/24 (Imitrex) bupropion HCl 100 mg tablet 100 mg PO BID 07/14/16 02/25/24 (Wellbutrin) cholecalciferol (vitamin D3) 25 1,000 unit PO DAILY 08/18/18 02/25/24 mcg (1,000 unit) capsule atorvastatin 20 mg tablet 20 mg PO QHS 04/29/22 02/25/24 celecoxib 100 mg capsule (Celebrex) 100 mg PO DAILY PRN 04/29/22 02/25/24 cetirizine 10 mg tablet 10 mg PO DAILY PRN 04/29/22 02/25/24 clonidine HCl 0.1 mg tablet 0.2 mg PO QHS 04/29/22 02/25/24 diclofenac sodium 1 % topical gel 2 g topical TID PRN 04/29/22 02/25/24 famotidine 20 mg tablet 20 mg PO BID 04/29/22 02/25/24 gabapentin 100 mg capsule See Rx Instructions PO QHS PRN 04/29/22 02/25/24 lamotrigine 100 mg tablet 200 mg PO BID 04/29/22 02/25/24 levothyroxine 50 mcg tablet 50 mcg PO DAILY 04/29/22 02/25/24 mecobalamin (vitamin B12) 2,500 2,500 mcg PO BID 09/22/22 02/25/24 mcg chewable tablet ondansetron 8 mg disintegrating 8 mg PO Q8H PRN 09/22/22 02/25/24 tablet nystatin 100,000 unit/gram topical 1 applic topical BID #30 grams 02/12/24 02/25/24 cream Previous Rx's ?Medication ?Instructions ?Recorded nystatin 100,000 unit/gram topical 1 applic topical BID #30 grams 02/12/24 cream Allergies Allergy/AdvReac Type Severity Reaction Status Date / Time aripiprazole ([facility] AdvReac Intermediate Agitation Verified 02/25/24 11:18 General Stated Complaint: Dizzy/Sync DONNY: 3 Review of Systems All systems reviewed & are unremarkable except as noted in HPI and below Exam Narrative Exam Narrative: GENERAL APPEARANCE: Well-nourished, non-toxic, awake and alert, atraumatic, no acute distress. SKIN: Warm, pink, dry, intact, without rashes/lesions/ulcerations. HEAD: Normocephalic, atraumatic, normal hair distribution for gender/age. EYES: Normal conjunctiva, no exudates on lids/lashes, EOMs intact without nystagmus ENT: Nares patent, no circumoral cyanosis, no facial swelling NECK: Supple, trachea midline, painless cervical ROM. LUNGS/CHEST: Lungs CTA bilaterally-no rhonchi/rales/wheezes diffusely, non- labored respirations, normal A/P diameter, symmetrical expansion, no chest wall deformity HEART (CV/PV): Regular rate and rhythm without murmur, no peripheral edema, no JVD. ABDOMEN: Soft, non-distended, no guarding, nontender. MSK: Normal ROM, no swelling/deformity to bilateral UEs or LEs, moving all extremities without weakness, no cyanosis, spine midline without tenderness, normal curvature. NEURO: Mental Status AAOx4 - alert to person, place, time, events No facial droop, no forehead involvement, some dysmetria with FNF bilaterally, no dysmetria with heel-garvey, hints exam negative for central cause Motor: No focal weakness - strength 5/5 in bilateral UEs and LEs, proximal and distal, symmetric. Sensory: sensation intact to light touch globally. Gait unsteady but not overtly ataxic, not following to one side but does use a cane at baseline PSYCH: euthymic, cooperative, pleasant, appropriate speech Course Vital Signs Vital signs: Vital Signs Temperature 37.0 C 02/25/24 11:11 Pulse 82 02/25/24 11:11 Respiratory Rate 20 02/25/24 11:11 Blood Pressure 147/65 H 02/25/24 11:11 Pulse Oximetry 96 02/25/24 11:11 Temperature 37.0 C 02/25/24 11:11 Temperature Source Oral 02/25/24 11:11 Pulse 82 02/25/24 11:11 Respiratory Rate 20 02/25/24 11:11 Blood Pressure 147/65 H 02/25/24 11:11 Blood Pressure Position Supine 02/25/24 11:11 Pulse Oximetry 96 02/25/24 11:11 Oxygen Delivery Method Room Air 02/25/24 11:11 Oxygen Flow Rate 0 02/25/24 11:11 Pain Level 0 02/25/24 11:11 Medical Decision Making This dictation utilizes [id number] dictation software and may contain unedited grammatical errors. 63 year-old female presents to ED today by EMS with a chief complaint of 2 days onset of coordination difficulties, some minor falls onto soft surfaces at home- recently received the shingles vaccine, and just before that had her lamotri gine increased and clonidine changed from QD to BID, as well as stopped seroquel. Quality described as dizziness today with balance issues, states she is shifting to the right when walking, some confusion, no radiation to vision changes, chest pain, denies room spinning sensation, denies recent URI, denies nausea and vomiting denies pulsatile tinnitus. Severity is described as moderate. Palliating factors include nothing specific attempted. Provoking factors include nothing specific. Patients' medical history: GERD, hyperlipidemia, CKD, episodic mood disorder, asthenia, hypertension, OCD, anxi ety and depression. Family and social history: Noncontributory lives independently at home, uses cane at baseline. Pertinent exam findings / vital signs include dysmetria with [id number], EOMs intact without nystagmus, strength 5/5 diffusely, no sensory deficits, unsteady gait but no overt ataxia, uses cane at baseline, benign cardiopulmonary status benign abdomen. HINTS exam negative for central cause. Differential / pathologies of concern include stroke, dizziness of unknown cause, medication side effects, benign paroxysmal positional vertigo, vertebral dissection, aneurysm, sentinel bleed. Diagnostic studies of: -CBC, CMP, troponin, UA, lamotrigine level, EKG, MRI brain without. -CBC negative for any acute abnormality -CMP shows chronically elevated creatinine slightly above baseline at 1.9 with mildly elevated BUN at 24, no other actionable abnormality -Troponin is negative with reliable onset from 2 days ago -UA shows no evidence of infection -EKG shows normal sinus rhythm with P waves followed by narrow complex QRS with normal axis, poor R wave progression, no ST changes, normal intervals -MRI without acute infarct, shows chronic microvascular disease -Discussed with Dr. Cyr, as vertebral dissection not definitively ruled out, reasonable to hydrate & give fluids for CTA of the neck only- pending at sign- out. Consider Neurology consult with repeat dysmetria on exam. Interventions of: -1g Tylenol for mild headache, PT Consult for possible BPPV vs safety concerns with patients ambulatory ability - PT states Coleman-Hallpike and Jeremy negative, ambulating with walker. ED Course/Assessment/Plan: 63-year-old female has been having some dizziness upon standing and gait abnormality and coordination difficulty for 2 days. Her MRI of her head is negative, she had to be sedated with 5 of diazepam for this study, I needed to add a CTA to definitively rule out vertebral dissection which is pending at signout, I did have physical therapy look at the patient for safety concerns for discharge, I expect that this is all side effects of her recent psych medication changes and she likely can go home to follow-up with outpatient neurology should there be no vertebral dissection or significant carotid abnormality on CTA of the neck when she has hydrated from the studies, troponin is negative with reliable onset, patient signed out to Nikky Barakat NP at shift change. Findings not consistent with CVA, occipital stroke, ACS. Disposition of Dizziness of Unknown Cause. Patient verbalized understanding of the plan and return to ED criteria and e ngaged in shared decision making. Medical Records Medical records reviewed: Yes I reviewed the patient's medical records. Imaging Data Radiologic Study: Attestation: I personally reviewed and interpreted this imaging study as follows: Imaging: MRI Radiologist's impression: EXAM: MR BRAIN WO CLINICAL HISTORY: dysmetria TECHNIQUE: Multiplanar multisequence MRI of the brain was performed. COMPARISON: No exams were available for comparison FINDINGS: VENTRICLES AND EXTRA AXIAL SPACES: Normal in size and morphology for the patient's age. MIDLINE SHIFT: None. CEREBRAL PARENCHYMA: No focus of restricted diffusion to suggest acute infarct. No space-occupying lesion identified. Mild atrophy co, somewhat disproportionate to the patient's age. There are a few scattered foci of high signal in the white matter consistent with sequela of chronic microvascular disease. BRAINSTEM/CEREBELLUM: Normal. VISUALIZED PARANASAL SINUSES: Clear. MASTOIDS:Clear. Vasculature: Normal flow void. PITUITARY GLAND: Unremarkable. ORBITS: Unremarkable. IMPRESSION: Mild atrophy. Minimal white matter changes. No acute abnormality Lab Data Lab results reviewed: Yes I reviewed the patient's lab results. Labs: Laboratory Tests Range/Units 02/25/24 02/25/24 11:50 12:15 WBC (4.4-10.8) 10^3/uL 7.47 RBC (3.93-5.22) 10^6/uL 4.27 Hgb (11.2-15.7) g/dL 13.2 Hct (36.0-46.0) % 40.6 MCV (80-95) fL 95 MCH (27.0-33.0) pg 30.9 MCHC (32.0-36.0) % 32.5 RDW (11.7-14.6) % 11.8 Plt Count (130-400) 10^3/uL 240 MPV (8.0-11.0) fL 10.2 Immature Gran % % 0.7 Neutrophils % % 67.3 Lymphocytes % % 19.7 Monocytes % % 10.4 Eosinophils % % 1.2 Basophils % % 0.7 Nucleated RBC % (0.0-0.3) % 0.0 Absolute Neutrophils (1.2-6.7) 10^3/uL 5.03 Absolute Lymphocytes (1.2-3.4) 10^3/uL 1.47 Absolute Monocytes (0.1-0.8) 10^3/uL 0.78 Absolute Eosinophils (0.0-0.7) 10^3/uL 0.09 Absolute Basophils (0.0-0.2) 10^3/uL 0.05 Sodium (136-145) mmol/L 141 Potassium (3.5-5.1) mmol/L 4.0 Chloride (98-107) mmol/L 104 Carbon Dioxide (21.0-32.0) mmol/L 32.1 H Anion Gap (3-11) mmol/L 4.9 BUN (7-18) mg/dL 24 H Creatinine (0.55-1.02) mg/dL 1.9 H Est GFR (CKD-EPI 2020) (mL/min/1.73m2) 29.30 Glucose (74-106) mg/dL 103 Calcium (8.5-10.1) mg/dL 9.8 Total Bilirubin (0.2-1.0) mg/dL 0.52 AST (15-37) U/L 15 ALT (14-59) U/L 27 Alkaline Phosphatase (46-116) U/L 129 H Troponin I (<or=51) ng/L 4 Total Protein (6.4-8.2) g/dL 7.3 Albumin (3.4-5.0) g/dL 3.6 Urine Color (Yellow) Yellow Urine Clarity (Clear) Clear Urine pH (5-8) 5.5 Ur Specific [place] (1.005-1.025) <= 1.005 Urine Protein (Neg-Trace) mg/dL Negative Urine Ketones (Negative) mg/dL Negative Urine Blood (Negative) Negative Urine Nitrite (Negative) Negative Urine Bilirubin (Negative) Negative Urine Urobilinogen (Up to 0.2) mg/dL 0.2 Ur Leukocyte Esterase (Negative) Negative Urine Glucose (Negative) mg/dL Negative Quality:SDOH Health Related Social Needs: No Data to Display PFSH All Active Problems (Updated 02/12/24 @ 15:02 by Judie Barakat DO) Yeast dermatitis (Acute) Well woman exam with routine gynecological exam (Acute) Osteoarthritis of carpometacarpal (CMC) joint of left thumb (Acute) Steroid injection: 05/05/2022 GERD (gastroesophageal reflux disease) (Chronic) Hyperlipidemia (Acute) ADHD (Acute) Hypothyroidism (Chronic) Dyspnea on exertion (Acute) CKD (chronic kidney disease) (Chronic) Osteoarthritis of left knee (Acute) Injected: 08/18/2018 Medical History (Updated 02/12/24 @ 15:02 by Judie Barakat DO) Incontinence in female OCD (obsessive compulsive disorder) Anxiety and depression Episodic mood disorder Migraine Vitamin D insufficiency Asthenia Hypertension Surgical History Colonoscopy - IV Sedation (07/14/16) Cholecystectomy Family History Father Colon cancer Social History Smoking/Tobacco Use Status: Former Tobacco Use Smoking risk assessment performed?: Yes Alcohol Intake: current Alcohol Intake frequency: holidays/special occasions only Drug use: Never Additional Social history: can not privately assess History History 2 Para 2 Hx # Term Pregnancies 2 Multiple births Hx # Pregnancies Ectopic pregnancies AB induced Hx Number of Living Children 2 AB spontaneous
[2024-02-25 11:55] LABS: Bilirubin Negative (Negative); Blood Negative (Negative); Clarity Clear (Clear); Glucose Negative (Negative); Ketones Negative (Negative); Leukocyte Esterase Negative (Negative); Nitrite Negative (Negative); Specific Gravity <= 1.005 (1.005-1.025); Urobilinogen 0.2 mg/dL (Up to 0.2); pH 5.5 (5-8)
[2024-02-25 12:23] VITALS: RESP 16
--- NOTE | 2024-02-25 12:27 | NUR.NOTE ---
Nursing Note: patient reports falling approx 0945 this AM witness by daughter. Walking back from bathroom she felt like she was walking sideways also felt dizzy fell on to a box was sitting on box. PT needed help to get in to a chair. Denies injuries. Daughter reports no head strike
[2024-02-25 12:29] LABS: Abs Immature Grans 0.05 10^3/uL (0.0-0.06); Absolute Basophil Count 0.05 10^3/uL (0.0-0.2); Absolute Eosinophil Count 0.09 10^3/uL (0.0-0.7); Absolute Lymphocyte Count 1.47 10^3/uL (1.2-3.4); Absolute Monocyte Count 0.78 10^3/uL (0.1-0.8); Absolute Neutrophil Count 5.03 10^3/uL (1.2-6.7); Basophils % 0.7 %; Eosinophils % 1.2 %; HCT 40.6 % (36.0-46.0); HGB 13.2 g/dL (11.2-15.7); Immature Grans % 0.7 %; Lymphocytes % 19.7 %; MCH 30.9 pg (27.0-33.0); MCHC 32.5 % (32.0-36.0); MCV 95 fL (80-95); MPV 10.2 fL (8.0-11.0); Monocytes % 10.4 %; Neutrophils % 67.3 %; Platelet Count 240 10^3/uL (130-400); RBC 4.27 10^6/uL (3.93-5.22); RDW 11.8 % (11.7-14.6); WBC 7.47 10^3/uL (4.4-10.8)
[2024-02-25 12:50] LABS: ALT 27 U/L (14-59); AST 15 U/L (15-37); Albumin 3.6 g/dL (3.4-5.0); Alkaline Phosphatase 129 U/L (46-116); Anion Gap 4.9 mmol/L (3-11); BUN 24 mg/dL (7-18); Bilirubin, Total 0.52 mg/dL (0.2-1.0); CO2 32.1 mmol/L (21.0-32.0); CREATININE 1.9 mg/dL (0.55-1.02); Calcium 9.8 mg/dL (8.5-10.1); Chloride 104 mmol/L (98-107); Glucose 103 mg/dL (74-106); Sodium 141 mmol/L (136-145); Total Protein 7.3 g/dL (6.4-8.2); Troponin I 4 ng/L (<or=51)
--- NOTE | 2024-02-25 13:00 | DI.MRI_ITS ---
Exam(s) MR BRAIN WO EXAM: MR BRAIN WO CLINICAL HISTORY: dysmetria TECHNIQUE: Multiplanar multisequence MRI of the brain was performed. COMPARISON: No exams were available for comparison FINDINGS: VENTRICLES AND EXTRA AXIAL SPACES: Normal in size and morphology for the patient's age. MIDLINE SHIFT: None. CEREBRAL PARENCHYMA: No focus of restricted diffusion to suggest acute infarct. No space-occupying le mansi identified. Mild atrophy co, somewhat disproportionate to the patient's age. There are a few sc attered foci of high signal in the white matter consistent with sequela of chronic microvascular dise ase. BRAINSTEM/CEREBELLUM: Normal. VISUALIZED PARANASAL SINUSES: Clear. MASTOIDS:Clear. Vasculature: Normal flow void. PITUITARY GLAND: Unremarkable. ORBITS: Unremarkable. IMPRESSION: Mild atrophy. Minimal white matter changes. No acute abnormality DATA REPOSITORY:
[2024-02-25] MEDS: Acetaminophen 500 MG TAB 1000 MG PO (13:20)
[2024-02-25] MEDS: diazePAM 10 MG/2 ML SYR 5 MG IVP (13:34)
--- NOTE | 2024-02-25 15:15 | DI.CT_ITS ---
Exam(s) CT HEAD WO EXAM: CT HEAD WO CLINICAL HISTORY: aneurysm vs vertebral dissection. TECHNIQUE: Imaging Protocol: Axial computed tomography images with coronal and sagittal reformatted images were created and reviewed COMPARISON: No exams were available for comparison FINDINGS: Ventricles and Extra axial spaces: Normal in size and morphology for the patient's age. Hemorrhage: None. Cerebral parenchyma: There is an old lacunar infarct in the right basal ganglia. No evidence of an a cute territorial infarct or mass effect. Midline shift: None. Brainstem/Cerebellum: Normal. Calvarium: Normal. Visualized Paranasal sinuses/Mastoids: Clear. Soft Tissues: Unremarkable. IMPRESSION: No acute intracranial process. RADIATION DOSE DELIVERED: 887.91mGy.cm Total DLP DATA REPOSITORY: All CT scans at this facility are submitted to the National Radiology Data Registry (NRDR) Dose Index Registry (DIR) with the [employer] (A[employer]). RADIATION OPTIMIZATION: All CT scans at this facility use at least one of these dose optimization te chniques: automated exposure control; mA and/or kV adjustment per patient size (includes targeted exa ms where dose is matched to clinical indication); or iterative reconstruction.
[2024-02-25] MEDS: Omnipaque 350 MG/ML 100 ML BTL IJ (15:27)
[2024-02-25] MEDS: Normal Saline - Diluent 50 ML VIAL IJ (15:28)
--- NOTE | 2024-02-25 15:31 | IN_ITS ---
PT Notes Visit Reasons: ill from shingles shot Physical Therapy Inpatient Initial Evaluation Date: 02/25/2024 Referring Doctor: GERMAN Salazar PT Orders: PT CONSULT: Safety Consult for D/C Precautions: Fall. Standard. Activity as tolerated. Patient Profile/Admitting Diagnosis: Catie is a 63 year old female admitted to the ED due to dizziness/syncope and difficulty with walking. She was referred to PT for assessment for BPPV and for safety consult for discharge. MRI showed no acute intracranial abnormality. PMHX: All Active Problems (Updated 02/12/24 @ 15:02 by Judie Barakat DO) Yeast dermatitis (Acute) Well woman exam with routine gynecological exam (Acute) Osteoarthritis of carpometacarpal (CMC) joint of left thumb (Acute) Steroid injection: 3GERD (gastroesophageal reflux disease) (Chronic) Hyperlipidemia (Acute) ADHD (Acute) Hypothyroidism (Chronic) Dyspnea on exertion (Acute) CKD (chronic kidney disease) (Chronic) Osteoarthritis of left knee (Acute) Injected: 08/18/2018 Medical History (Updated 02/12/24 @ 15:02 by Judie Barakat DO) Incontinence in female OCD (obsessive compulsive disorder) Anxiety and depression Episodic mood disorder Migraine Vitamin D insufficiency Asthenia Hypertension Surgical History Colonoscopy - IV Sedation (07/14/16) Cholecystectomy Social History/Home Situation: Lives alone with Jaiden in a single-stroy private home with 3-4 steps to enter with a rail on one side. Modified independent with all mobility ADLs using single-point cane. Equipment Owned/DME: [facility] Subjective: Stated that she recently has had medication change for her BP, she has 3 total antiHTN meds. She felt dizzy on Thursday while at her the MD office where she then was helped by office staff and nurse and found her BP to be low. She just had taken the new BP medication given to her earlier that day. Patient also has had bad arthritis of her L knee and and has had increasing difficulty with walking because of it. This morning she was dizzy again and lost footing and fell on some boxes at home but was able to stand back up with the help of . She reported feeling better after having walked about 100 feet using a front-wheeled walker. She reported some dizziness sitting up and lying back down during this session but of less intensity compared to when it happened 2 days ago. Patient reported pain in L knee from arthritis. Per GERMAN Bueno, patient's MRI revealed no acute intracranial process, ruled out CVA. Onset: ?02/23/2024Thursday while walking at the MD's office Quality: dizzy lasted for 10 minutes but had to stay on the MD office for aabout an hour Duration: ?Less intensity at time of evaluation compared to time of onset Previous Episodes: None Exacerbating Factors: Walking that time after medication change Headache: None Neck ache: None Nausea/Vomitting: Yes at time of onset Hearing Loss: None Tinnitus: None Fullness in Ear: None Imbalance: None Red Flags: ? Visual changes: None ? Dysphagia or Dysarthria: None ? Facial Weakness: None ? Incoordination: None Prior Level of Function: Independent with all ADLs using SPC Current Level of Function: Stand by assist with FWW for 100 feet Previous Treatment: None OBJECTIVE: Posture: Good upright posturing Observation: Slowed justin, al little more cautious with movement compared to two days prior Mental Status: A and O x 4 Vital Signs: BP 147/85 mmHg with HOb at about 30 degrees ROM: Cervical ROM: WFL Right Upper Extremity: Shoulder Flexion WFL. Shoulder abduction WFL. Elbow flexion WFL. Wrist flexion WFL. Functional opening and closing of hand WFL. Left Upper Extremity: Shoulder Flexion WFL. Shoulder abduction WFL. Elbow flexion WFL. Wrist flexion WFL. Functional opening and closing of hand WFL. Right Lower Extremity: Hip flexion WFL. Hip abduction WFL. Knee flexion WFL. Ankle dorsiflexion WFL. Ankle plantarflexion WFL. Left Lower Extremity: Hip flexion WFL. Hip abduction WFL. Knee flexion 30 degrees to 90 degrees. Knee extension -30 degrees. Ankle dorsiflexion WFL. Ankle plantarflexion WFL. Strength: Cervical muscle strength: Grossly 5/5 Right Upper Extremity: Shoulder flexors 5/5. Shoulder abductors 5/5. Elbow flexors 5/5. Elbow extensors 5/5. De Icer Kit Assembler strong. Left Upper Extremity: Shoulder flexors 5/5. Shoulder abductors 5/5. Elbow flexors 5/5. Elbow extensors 5/5. De Icer Kit Assembler strong. Right Lower Extremity: Hip flexors 5/5. Hip abductors 5/5. Knee flexors 5/5. Knee extensors 5/5. Ankle dorsiflexors 5/5. Ankle plantarflexors 5/5. Left Lower Extremity:Hip flexors 4-/5. Hip abductors 4-/5. Knee flexors 3-/5. Knee extensors 3-/5. Ankle dorsiflexors 5/5. Ankle plantarflexors 5/5. Bed Mobility/Transfers: Rolling modified independent Supine to sit modified independent Sit to supine modified independent Sit to stand contact guard assist Stand to sit stand by assist Gait: Observed patient walked the unit hallway covering a distance of 100 feet with FWW with stand by assist only with verbal cueing for directions only. [place] more stable using the FWW compared to the SPC. Special Tests: ? [place]: Negative ? Coordination: Intact ? Fine Motor: Intact ? Visual Tracking: Intact ? Head Thrust: Deferred ? [place]: Negative ? Supine Roll Test: Negative Balance: Static Sitting: Good Dynamic Sitting: Good Static Standing: Good Dynamic Standing: Fair Special Tests: Mobility Limitations Standardized Measure [facility] AM-PAC 6 clicks Basic Mobility Inpatient Short Form: Raw Score: 23 CMS Score: 11% deficit Informed Consent/Education: Patient was instructed in purpose of PT consult. ASSESSMENT: Patient presents with clinical signs and symptoms consistent with current/admitting diagnoses that have resulted to mobility limitations, gait instability, generalized weakness, and overall ADL decline as demonstrated by the following impairment level findings: 1. Impaired standing balance 2. Impaired activity tolerance 3. Limitation of joint range of motion in L knee 4. Mild dizziness that subsided with ambulation activity Impairments are contributing to the following functional limitations: 1. Increased completion time for mobility ADL performance 2. Increased risk for falls Patient is assessed as a 63317 low complexity based on the following: History: 63-year-old male with past medical history as indicated above Examination: Demonstrable impairment above Presentation: Stable Decision Makin low complexity Goals: N/A. PT evalaution and 1 treatment session for functional mobility training only. Plan of Care/Treatment Plan: N/A. PT evalaution and 1 treatment session for functional mobility training only. DISCHARGE RECOMMENDATIONS: [X] Home with no services. Patient use of front wheeled walker for stability and to offload left painful arthritic knee. [] Home with services [specify] [] Home with outpatient PT [] SNF for continued rehabilitation [] [] Clerical Proof[facility] [] [] SNF versus LTC based on ability to participate and progress [] TREATMENT CODE/TIME: 10859 x 20 minutes for 1 unit, 07504 x 24 minutes for 2 units (14:45-15:29). Thank you for the opportunity to participate in the care of this patient. Belem Leung PT, DPT, CLT [facility] [place], [place]
--- NOTE | 2024-02-25 15:50 | W.EDPROG ---
Date of service: 02/25/24 Time of Service: 15:50 Medical Decision Making Care assumed from provider (GERMAN Reyna) Please see their initial HPI, PE, and documentation. Discussed patient details and case and pending workup and disposition. Patient is hemodynamically stable, and alert and oriented. At the time of signout awaiting CTA results. In short patient is a 63-year-old female with a chief complaint of dizziness with a negative MRI labs show elevated GFR elevated BUN/creatinine at 24 and 1.9. She recently had some changes to her medications. CT head shows an old lacunar infarct in the right basal ganglia. No evidence for acute infarct or mass effect. CT head without was done due to patient's lack of IV access. Pending CTA with contrast. Informed by CT that the IV was not patent they were unable to administer the IV contrast. On patient reevaluation she appears neurologically intact. I did discuss her CT results which show an old lacunar infarct in the right basal ganglia she verbalized understanding. I did give her referral to neurologist Dr. Gilmore and she was placed on the care management list to assist her in getting a follow-up appointment. Discussed strict return instructions patient was discharged with a walker into the care of her family. She was ambulatory with a walker without assistance. Patient remained hemodynamically stable alert and oriented throughout the remainder of her stay. This text was generated using [employer] dictation system, please disregard any oddities of phrase or misspellings. Medical Records Medical records reviewed: Yes I reviewed the patient's medical records. Imaging Data Radiologic Study #2: Imaging: CT Scan Radiologist's impression: CT HEAD WO EXAM: CT HEAD WO CLINICAL HISTORY: aneurysm vs vertebral dissection. TECHNIQUE: Imaging Protocol: Axial computed tomography images with coronal and sagittal reformatted images were created and reviewed COMPARISON: No exams were available for comparison FINDINGS: Ventricles and Extra axial spaces: Normal in size and morphology for the patient's age. Hemorrhage: None. Cerebral parenchyma: There is an old lacunar infarct in the right basal ganglia. No evidence of an acute territorial infarct or mass effect. Midline shift: None. Brainstem/Cerebellum: Normal. Calvarium: Normal. Visualized Paranasal sinuses/Mastoids: Clear. Soft Tissues: Unremarkable. IMPRESSION: No acute intracranial process. Lab Data Lab results reviewed: Yes I reviewed the patient's lab results. Labs: Laboratory Tests Range/Units 02/25/24 02/25/24 11:50 12:15 WBC (4.4-10.8) 10^3/uL 7.47 RBC (3.93-5.22) 10^6/uL 4.27 Hgb (11.2-15.7) g/dL 13.2 Hct (36.0-46.0) % 40.6 MCV (80-95) fL 95 MCH (27.0-33.0) pg 30.9 MCHC (32.0-36.0) % 32.5 RDW (11.7-14.6) % 11.8 Plt Count (130-400) 10^3/uL 240 MPV (8.0-11.0) fL 10.2 Immature Gran % % 0.7 Neutrophils % % 67.3 Lymphocytes % % 19.7 Monocytes % % 10.4 Eosinophils % % 1.2 Basophils % % 0.7 Nucleated RBC % (0.0-0.3) % 0.0 Absolute Neutrophils (1.2-6.7) 10^3/uL 5.03 Absolute Lymphocytes (1.2-3.4) 10^3/uL 1.47 Absolute Monocytes (0.1-0.8) 10^3/uL 0.78 Absolute Eosinophils (0.0-0.7) 10^3/uL 0.09 Absolute Basophils (0.0-0.2) 10^3/uL 0.05 Sodium (136-145) mmol/L 141 Potassium (3.5-5.1) mmol/L 4.0 Chloride (98-107) mmol/L 104 Carbon Dioxide (21.0-32.0) mmol/L 32.1 H Anion Gap (3-11) mmol/L 4.9 BUN (7-18) mg/dL 24 H Creatinine (0.55-1.02) mg/dL 1.9 H Est GFR (CKD-EPI 2020) (mL/min/1.73m2) 29.30 Glucose (74-106) mg/dL 103 Calcium (8.5-10.1) mg/dL 9.8 Total Bilirubin (0.2-1.0) mg/dL 0.52 AST (15-37) U/L 15 ALT (14-59) U/L 27 Alkaline Phosphatase (46-116) U/L 129 H Troponin I (<or=51) ng/L 4 Total Protein (6.4-8.2) g/dL 7.3 Albumin (3.4-5.0) g/dL 3.6 Urine Color (Yellow) Yellow Urine Clarity (Clear) Clear Urine pH (5-8) 5.5 Ur Specific [place] (1.005-1.025) <= 1.005 Urine Protein (Neg-Trace) mg/dL Negative Urine Ketones (Negative) mg/dL Negative Urine Blood (Negative) Negative Urine Nitrite (Negative) Negative Urine Bilirubin (Negative) Negative Urine Urobilinogen (Up to 0.2) mg/dL 0.2 Ur Leukocyte Esterase (Negative) Negative Urine Glucose (Negative) mg/dL Negative Quality:SDOH Health Related Social Needs: No Data to Display Discharge Plan Disposition Patient Disposition: Home Condition: Stable Discharge Details Clinical Impression: Old lacunar stroke without late effect, Dizziness Primary Care Provider: [facility] ED Provider: Nikky Ring Home Meds and New Rx's Prescriptions: Continued cholecalciferol (vitamin D3) 1,000 unit capsule 1,000 unit PO DAILY nystatin 100,000 unit/gram cream 1 applic topical BID Qty: 30 2RF ondansetron 8 mg tablet,disintegrating 8 mg PO Q8H PRN mecobalamin (vitamin B12) 2,500 mcg tablet,chewable 2,500 mcg PO BID Patient Comments: 09/22/22- pt reports takes two 2500 mcg tabs daily lamotrigine 100 mg tablet 200 mg PO BID cetirizine 10 mg tablet 10 mg PO DAILY PRN gabapentin 100 mg capsule See Rx Instructions PO QHS PRN Rx Instructions: 1-3 capsules orally every day at bedtime PRN; levothyroxine 50 mcg tablet 50 mcg PO DAILY clonidine HCl 0.1 mg tablet 0.2 mg PO QHS Patient Comments: 0.2 mg at night and 0.1 in the morning. diclofenac sodium 1 % gel 2 g topical TID PRN Rx Instructions: apply to single elbow, wrist or hand; for hand includes palm/fingers/back of hand celecoxib [Celebrex] 100 mg capsule 100 mg PO DAILY PRN famotidine 20 mg tablet 20 mg PO BID atorvastatin 20 mg tablet 20 mg PO QHS acetaminophen [Acetaminophen Extra Strength] 500 MG tablet 1,000 mg PO PRN PRN (Reason: Pain) albuterol sulfate [Ventolin HFA] 8 GM HFA aerosol inhaler 2 puff Inhalation PRN PRN (Reason: Shortness Of Breath) montelukast [Singulair] 10 MG tablet 10 mg PO DAILY sumatriptan succinate [Imitrex] 50 MG tablet 50 mg PO PRN PRN lisinopril 10 MG tablet 10 mg PO DAILY bupropion HCl [Wellbutrin] 100 MG tablet 100 mg PO BID Discharge Instructions Instructions: Dealing with Dizziness from the Drugs You Take, Dizziness, Adult ED Additional Instructions: CT shows an old lacunar infarct in the right basal ganglia it is unclear if this has anything to do with your symptoms today. And referral was placed for neurology Dr. Gilmore. If you do not hear from them by Thursday or Thursday next week please call them to make an appointment. Follow up with primary care provider in 3-5 days. Return to ED sooner if any worsening or concerns. Please take an 81 mg chewable baby aspirin daily. Thank you for allowing us to care for you today Referrals: Lisa Gilmore MD [ [facility] STAFF PHYSICIAN] - 1 week Discharge Data Discharge Date/Time-TO BE ENTERED AT DEPARTURE: 02/25/24 18:16
[2024-02-25] MEDS: Normal Saline 1,000 ML 1000 ML IV (16:45)
== END 2024-02-25 18:16 | disposition home or self-care (01) ==
PROVIDERS: Physician Assistant; Emergency Provider Registered Nurse Emergency; PCP Nurse Practitioner Family
DX: R42 Dizziness and giddiness (principal); R55 Syncope and collapse; I10 Essential (primary) hypertension; E78.5 Hyperlipidemia, unspecified; E03.9 Hypothyroidism, unspecified; Z87.891 Personal history of nicotine dependence
CPT/HCPCS: 00123; 36415; 80053; 80175; 93005; 96361; 96374; 97162; 97530; 99285; 70450; 70551; 81003; 84484; 85025; 93010; J3360; J3490

== ENCOUNTER → 2024-03-15 08:12 | Outpatient (BNVA) | payer MEDICARE, SELFPAY | PROVIDERS: PCP Nurse Practitioner Family; Referring Provider Registered Nurse Emergency; Visit Provider Psychiatry & Neurology Neurology | DX: G43.009 Migraine without aura, not intractable, without status migrainosus (principal); R42 Dizziness and giddiness; M25.562 Pain in left knee; G89.29 Other chronic pain | CPT/HCPCS: 99215 ==

== ENCOUNTER 2024-03-18 01:22 | Outpatient (CLI) | payer MEDICARE, SELFPAY ==
[2024-03-18 13:38] LABS: HCT 41.3 % (36.0-46.0); HGB 13.5 g/dL (11.2-15.7); MCH 30.6 pg (27.0-33.0); MCHC 32.7 % (32.0-36.0); MCV 94 fL (80-95); MPV 9.7 fL (8.0-11.0); Platelet Count 425 10^3/uL (130-400); RBC 4.41 10^6/uL (3.93-5.22); RDW 11.7 % (11.7-14.6); RDW-SD 40.1 fL; WBC 8.22 10^3/uL (4.4-10.8)
[2024-03-18 14:02] LABS: Hemoglobin A1C 5.7 % (<5.7)
[2024-03-18 15:02] LABS: Iron 90 ug/dL (50-170); Total Iron Binding Capacity 245 ug/dL (250-450); Transferrin Sat 37 % (15-50)
[2024-03-18 15:02] LABS: COMMENT (LAB VIEW ONLY) 34.36 mg/dL
[2024-03-18 15:32] LABS: ALT 29 U/L (14-59); AST 15 U/L (15-37); Albumin 3.8 g/dL (3.4-5.0); Alkaline Phosphatase 128 U/L (46-116); Anion Gap 9.5 mmol/L (3-11); BUN 25 mg/dL (7-18); Bilirubin, Total 0.38 mg/dL (0.2-1.0); CO2 26.5 mmol/L (21.0-32.0); CREATININE 1.6 mg/dL (0.55-1.02); Calcium 9.5 mg/dL (8.5-10.1); Chloride 105 mmol/L (98-107); Estimated GFR 36.01 (mL/min/1.73m2); Ferritin 157 ng/mL (8-252); Glucose 115 mg/dL (74-106); Potassium 4.1 mmol/L (3.5-5.1); Sodium 141 mmol/L (136-145); Total Protein 6.8 g/dL (6.4-8.2); Vitamin D 25 Total 29.9 ng/mL (30-100)
[2024-03-18 16:16] LABS: PHOSPHORUS 4.3 mg/dL (2.6-4.7)
[2024-03-18 23:59] LABS: Parathyroid Hormone,Intact 54.9 pg/mL (19.0-88.0)
== END 2024-03-18 01:23 | disposition home or self-care (01) ==
LOC: LBO 01:22
PROVIDERS: PCP Nurse Practitioner Family; Visit Provider Nurse Practitioner Family
DX: N18.31 Chronic kidney disease, stage 3a (principal); R73.03 Prediabetes; E03.9 Hypothyroidism, unspecified
CPT/HCPCS: 36415; 80053; 82306; 85027; 82043; 82570; 82728; 83036; 83540; 83550; 83970; 84100; 84443

== ENCOUNTER 2024-08-30 08:32 | Outpatient (CLI) | payer MEDICARE, SELFPAY ==
--- NOTE | 2024-08-30 | DI.RAD_ITS ---
Exam(s) XR KNEE RT 3V AP,LAT,HUE EXAM: XR KNEE RT 3V AP,LAT,HUE CLINICAL HISTORY: PAIN RT KNEE M25.561 HX FALLING Z91.81 SEVERE PAIN S/P FALL 1-2 WEEKS AGO. TECHNIQUE: 2D digital imaging was performed. Three views. COMPARISON: CR XR knee LT 4V AP,lat,hue,pat from 08/18/2018 FINDINGS: The tunnel view is limited by overlying clothing. BONES: No acute fracture is present. No bony destructive lesion is seen. JOINTS: The knee is normally aligned. No joint effusion is seen. SOFT TISSUE: Normal. IMPRESSION: Unremarkable radiographs of the right knee. DATA REPOSITORY: RADIATION DOSE DELIVERED:
== END 2024-08-30 08:52 ==
LOC: DI 08:33
PROVIDERS: PCP Nurse Practitioner Family; Visit Provider Nurse Practitioner Family
DX: M25.561 Pain in right knee (principal); Z91.81 History of falling
CPT/HCPCS: 73562

== ENCOUNTER 2024-09-16 10:00 | Outpatient (CLI) | payer MEDICARE, SELFPAY ==
--- NOTE | 2024-09-16 09:45 | DI.RAD_ITS ---
Exam(s) XR KNEE LT 4V AP,LAT,HUE,PAT EXAM: XR KNEE LT 4V AP,LAT,HUE,PAT CLINICAL HISTORY: L knee pain. TECHNIQUE: 2D digital imaging was performed of the left knee. Four images were obtained. Merchant,AP, lateral and PA tunnel views were obtained. COMPARISON: CR XR knee LT 4V AP,lat,hue,pat from 08/18/2018 FINDINGS: BONES: No acute fracture is present. No bony destructive lesion is seen. JOINTS: There is marked narrowing of the medial femoral tibial joint and moderate narrowing of the patellofemoral joint. Osteophytes are seen in all 3 joint compartments. There is a tiny joint effusion. No loose body. SOFT TISSUE: Normal. IMPRESSION: Marked osteoarthritis of the left knee. DATA REPOSITORY: RADIATION DOSE DELIVERED:
== END 2024-09-16 10:01 | disposition home or self-care (01) ==
LOC: DIORS 10:00
PROVIDERS: PCP Nurse Practitioner Family; Referring Provider Nurse Practitioner Family; Visit Provider Physician Assistant
DX: M25.562 Pain in left knee (principal); M17.12 Unilateral primary osteoarthritis, left knee; Z98.890 Other specified postprocedural states
CPT/HCPCS: 20610; J1010; 73564